=== PATIENT | female | born 1935 | race Caucasian/White ===

== ENCOUNTER 2018-05-05 11:19 | Inpatient (IN) | payer MEDICARE, MEDICAID ==
--- NOTE | 2018-05-05 12:17 | ER Document Report ---
ED Dizziness/Weakness - General Chief Complaint: General Weakness Stated Complaint: WEAKNESS Time Seen by Provider: 05/05/18 11:48 Information source: Patient Notes: 82-year-old female presents today with what appears to be her [id number] stating that the patient has been mumbling her words intermittently for around 1 week. Patient was diagnosed with some dementia around 1 year ago. Patient was scheduled to see the neurologist today but was having some difficulty walking. Patient was able to stand but was having some gait shuffling. Family states that this is happened around 3 times during this last week. It resolved spontaneously. Patient has had no witnessed falls, complaints of vomiting, diarrhea, or fever. TRAVEL OUTSIDE OF THE [place] IN LAST 30 DAYS: No - HPI Patient complains to provider of: Other - See above Onset: Other - See above Onset/Duration: Gradual Quality of pain: No pain Severity: Mild Pain Level: Denies Associated symptoms: Other - See above - Related Data Allergies/Adverse Reactions: Sulfa (Sulfonamide Antibiotics) Allergy (Verified 09/20/14 17:12) Past Medical History - General Information source: Relative - Social History Smoking Status: Unknown if Ever Smoked Cigarette use (# per day): No Chew tobacco use (# tins/day): No Smoking Education Provided: No Frequency of alcohol use: None Family History: Reviewed & Not Pertinent Patient has suicidal ideation: No Patient has homicidal ideation: No - Past Medical History Cardiac Medical History: Reports: Hx Hypertension Renal/ Medical History: Denies: Hx Peritoneal Dialysis Past Surgical History: Reports: Hx Appendectomy, Hx Bowel Surgery, Hx Hysterectomy, Hx Tonsillectomy - Immunizations Hx Diphtheria, Pertussis, Tetanus Vaccination: Yes Hx Pneumococcal Vaccination: 10/12/13 Review of Systems - Review of Systems Constitutional: denies: Fever EENT: denies: Eye discharge, Nose discharge Cardiovascular: denies: Chest pain, Palpitations Respiratory: denies: Short of breath Gastrointestinal: denies: Vomiting Genitourinary: denies: Dysuria Musculoskeletal: denies: Leg swelling Skin: Other - no hives. denies: Rash Neurological/Psychological: Other - no slurred speech -: Yes All other systems reviewed and negative Physical Exam - Vital signs Vitals: Temp Pulse Resp BP Pulse Ox 97.6 F 76 18 196/92 H 96 05/05/18 11:27 05/05/18 11:27 05/05/18 11:27 05/05/18 11:27 05/05/18 11:27 Notes: Reviewed vital signs and nursing note as charted by RN. CONSTITUTIONAL: Alert and polite. Patient does follow commands. She does mumble her words intermittently. No obvious facial drooping. Patient is not oriented to place or time which appears to be baseline according to the family HEAD: Normocephalic; atraumatic EYES: PERRL; CN 2-12 intact ENT: Normal nose; no rhinorrhea; moist mucous membranes; pharynx without lesions noted NECK: Supple without meningismus; non-tender; no cervical lymphadenopathy, no masses CARD: Regular rate and rhythm; no murmurs, no clicks, no rubs, no gallops; symmetric distal pulses RESP: Normal chest excursion without splinting or tachypnea; breath sounds clear and equal bilaterally ABD/GI: Normal bowel sounds; non-distended; soft, non-tender to deep palpation of all 4 quadrants of the abdomen. No abdominal bruits or palpable masses BACK: The back appears normal and is non-tender to palpation EXT: Normal ROM in all joints; non-tender to palpation, no edema SKIN: Normal color for age and race; warm; dry; no acute lesions noted NEURO: CN II through XII are intact. Patient appears to have 5 out of 5 bilateral upper and lower extremity strength with sensation intact to light touch PSYCH: The patient's mood and manner are appropriate. Grooming and personal hygiene are appropriate. Course - Re-evaluation Re-evalutation: 05/05/18 12:17 Given the history and physical examination, we will initially start with a CT scan of the head, labs, cardiac panel, EKG, catheterized urine analysis, and reassess. Given the intermittent episodes of some shuffling gait with no focal neurological deficits at this time, with some dementia, I am concerned initially about possibility of a Parkinson-like disorder. However, I believe the patient may require an MRI, carotid Dopplers, and an echo given the intermittent episodes of difficulty walking with some slurred speech. 05/05/18 12:36 EKG shows heart of 71, normal sinus rhythm, normal axis, LVH, inverted T waves in leads I, aVL, V4 through V6. Poor R-wave progression. Mild ST depressions in leads V4 through V6 Old EKG from 2013 shows LVH as well with sharp inverted T waves in leads V2 through V6 with ST depressions at that time in leads V2 through V4 05/05/18 14:58 Urine analysis as recorded. CT scan of the head shows no obvious acute infarct or bleed. Patient will be admitted to the hospitalist service for further evaluation. - Vital Signs Vital signs: Temp Pulse Resp BP Pulse Ox 97.6 F 76 18 196/92 H 94 05/05/18 11:27 05/05/18 11:27 05/05/18 14:00 05/05/18 11:27 05/05/18 14:00 - Laboratory Result Diagrams: 05/05/18 12:35 05/05/18 12:35 Laboratory results interpreted by me: 05/05/18 05/05/18 12:35 14:25 Total Bilirubin 1.4 H Total Protein 8.7 H Urine Ketones 20 H Urine Blood SMALL H Urine Urobilinogen 4.0 H Discharge - Discharge Clinical Impression: Slurred speech, Gait disorder Condition: Fair Disposition: ADMITTED OBSERVATION Admitting Provider: Hospitalist Unit Admitted: Telemetry Referrals: JUDAH CHAVEZ NP [COMMUNITY BASED STAFF] - Follow up as needed
[2018-05-05 13:02] LABS: ABSOLUTE BASOPHILS # (AUTO) 0.1 10^3/uL (0.0-0.2); ABSOLUTE EOSINOPHILS # (AUTO) 0.1 10^3/uL (0.0-0.6); ABSOLUTE LYMPHOCYTES (AUTO) 1.6 10^3/uL (0.5-4.7); ABSOLUTE MONOCYTES (AUTO) 0.4 10^3/uL (0.1-1.4); ABSOLUTE NEUT (AUTO) 7.1 10^3/uL (1.7-8.2); BASOPHILS % (AUTO) 0.9 % (0-2); EOSINOPHILS % (AUTO) 1.4 % (0-6); HEMATOCRIT 37.9 % (36.0-47.0); HEMOGLOBIN 12.9 g/dL (12.0-15.5); LYMPHOCYTES % (AUTO) 17.5 % (13-45); MEAN CORPUSCULAR HEMOGLOBIN 30.8 pg (27.0-33.4); MEAN CORPUSCULAR VOLUME 91 fl (80-97); MONOCYTES % (AUTO) 4.7 % (3-13); PLATELET COUNT 188 10^3/uL (150-450); RED BLOOD COUNT 4.18 10^6/uL (3.72-5.28); RED CELL DISTRIBUTION WIDTH 13.8 % (11.5-14.0); SEGMENTED NEUTROPHILS % (AUTO) 75.5 % (42-78); TOTAL CELLS COUNTED % (AUTO) 100 %; WHITE BLOOD COUNT 9.4 10^3/uL (4.0-10.5)
--- NOTE | 2018-05-05 13:07 | RADIOLOGY REPORT (SQ) ---
EXAM DESCRIPTION: CT HEAD WITHOUT COMPLETED DATE/TIME: 05/05/2018 12:56 pm REASON FOR STUDY: 19; ct head / weakness COMPARISON: None. TECHNIQUE: Axial images acquired through the brain without intravenous contrast. Images reviewed wi th bone, brain and subdural windows. Additional sagittal and coronal reconstructions were generated. Images stored on PACS. All CT scanners at this facility use dose modulation, iterative reconstruction, and/or weight based d osing when appropriate to reduce radiation dose to as low as reasonably achievable (ALARA). [facility]: Dose Right [facility]: CareDose [facility]: Dose Right [facility]: Teradose 4D [facility]: Yellloh RADIATION DOSE: CT Rad equipment meets quality standard of care and radiation dose reduction techniq ues were employed. CTDIvol: 53.2 mGy. DLP: 964 mGy-cm.mGy. LIMITATIONS: None. FINDINGS: VENTRICLES: Prominent. CEREBRUM: No masses. No hemorrhage. No midline shift. Areas of low density in the white matter mos t likely due to chronic micro-vascular ischemic change. No evidence for acute infarction. CEREBELLUM: No masses. No hemorrhage. No alteration of density. No evidence for acute infarction. EXTRAAXIAL SPACES: Age-related involutional change. No fluid collections. No masses. ORBITS AND GLOBE: No intra- or extraconal masses. Normal contour of globe without masses. CALVARIUM: No fracture. PARANASAL SINUSES: No fluid or mucosal thickening. SOFT TISSUES: No mass or hematoma. OTHER: No other significant finding. IMPRESSION: CHRONIC CHANGES OF ATROPHY AND MICROVASCULAR ISCHEMIA. NO ACUTE PROCESS. EVIDENCE OF ACUTE STROKE: NO. TECHNICAL DOCUMENTATION: JOB ID: [id number] Quality ID # [id number]: Final reports with documentation of one or more dose reduction techniques (e.g., Au tomated exposure control, adjustment of the mA and/or kV according to patient size, use of iterative reconstruction technique) 2010 [employer]- All Rights Reserved Reading location - IP/workstation name: [email or web address]
[2018-05-05 13:22] LABS: ALANINE AMINOTRANSFERASE 13 U/L (9-52); ALBUMIN 4.4 g/dL (3.5-5.0); ALKALINE PHOSPHATASE 94 U/L (38-126); ANION GAP 12 (5-19); ASPARTATE AMINO TRANSFERASE 21 U/L (14-36); BILIRUBIN,DIRECT 0.4 mg/dL (0.0-0.4); BILIRUBIN,TOTAL 1.4 mg/dL (0.2-1.3); BLOOD UREA NITROGEN 20 mg/dL (7-20); CALCIUM 9.4 mg/dL (8.4-10.2); CARBON DIOXIDE 27 mmol/L (22-30); CHLORIDE 101 mmol/L (98-107); GLUCOSE 90 mg/dL (75-110); POTASSIUM 3.7 mmol/L (3.6-5.0); SODIUM 140.1 mmol/L (137-145); TOTAL PROTEIN 8.7 g/dL (6.3-8.2)
[2018-05-05] MEDS ORDERED: ASPIRIN 325 MG TABLET PO ONE (14:38)
[2018-05-05 14:46] LABS: APPEARANCE,URINE SLIGHTLY-CLOUDY; BILIRUBIN,URINE NEGATIVE (NEGATIVE); COLOR,URINE YELLOW; GLUCOSE, URINE NEGATIVE (NEGATIVE); KETONES,URINE 20 mg/dL (NEGATIVE); LEUKOCYTE ESTERASE,URINE NEGATIVE (NEGATIVE); NITRITE,URINE NEGATIVE (NEGATIVE); PROTEIN,URINE NEGATIVE (NEGATIVE); URINE SPECIFIC GRAVITY 1.011
--- NOTE | 2018-05-05 15:09 | EKG REPORT ---
SEVERITY:- ABNORMAL ECG - SINUS RHYTHM REPOL ABNRM SUGGESTS ISCHEMIA, DIFFUSE LEADS PROBABLE LVH W/ SECONDARY REPOL ABNORMALITIES : Confirmed by: Renuka Mixon MD 05-May-2018 15:08:37
[2018-05-05] MEDS ORDERED: DEXTROSE 5%-NORMAL SALINE 1,000 ML IV PRN (16:05)
[2018-05-05] MEDS ORDERED: DEXTROSE 40% GEL 15 GM TUBE PO PRN ×2 (16:05)
[2018-05-05] MEDS ORDERED: GLUCAGON,HUMAN RECOMB 1 MG INJ SUBCUT PRN (16:05)
[2018-05-05] MEDS ORDERED: DEXTROSE 50%-WATER 25 GM/50 ML DISP.SYRIN IV PRN ×2 (16:05)
--- NOTE | 2018-05-05 16:22 | PDOC H&P ---
History of Present Illness Admission Date/PCP: 05/05/18 15:03 LATRICIA MASTERS NP History of Present Illness: LUIS MOORE is a 82 year old female brought by stepdaughter for mumbling and difficulty walking. Since patient has underlying cognitive impairment due to dementia she could not to give any history. Brief history is obtained from ER attending notes. Her [id number] states that the patient has been mumbling her overdose intermittently for around 1 week. Patient was diagnosed with some dementia around 1 year ago and she has been on Namenda. Patient was scheduled to see her neurologist today but was having some difficulty walking. Patient was able to stand but was having some gait abnormality. Family states that this is happened around 3 times during the last week. It resolved spontaneously patient has had no witnessed falls, complaints of vomiting, diarrhea or fevers. Further detailed history and review of systems unobtainable Past Medical History Cardiac Medical History: Reports: Hypertension Past Surgical History Past Surgical History: Reports: Appendectomy, Hysterectomy, Tonsillectomy Social History Smoking Status: Former Smoker Frequency of Alcohol Use: None Hx Recreational Drug Use: No Drugs: None Hx Prescription Drug Abuse: No - Advance Directive Resuscitation Status: Full Code Family History Family History: Reviewed & Not Pertinent Parental Family History Reviewed: Yes Children Family History Reviewed: Yes Sibling(s) Family History Reviewed.: Yes Medication/Allergy Allergies/Adverse Reactions: Sulfa (Sulfonamide Antibiotics) Allergy (Verified 09/20/14 17:12) Review of Systems ROS unobtainable: Due to mental status Physical Exam Vital Signs: Temp Pulse Resp BP Pulse Ox 97.6 F 76 22 H 136/94 H 96 05/05/18 11:27 05/05/18 11:27 05/05/18 15:03 05/05/18 15:03 05/05/18 15:03 General appearance: PRESENT: no acute distress Eye exam: PRESENT: conjunctiva pink Mouth exam: PRESENT: moist Neck exam: ABSENT: carotid bruit, JVD, lymphadenopathy, thyromegaly Respiratory exam: PRESENT: clear to auscultation raudel. ABSENT: rales, rhonchi, wheezes Cardiovascular exam: PRESENT: RRR. ABSENT: diastolic murmur, rubs, systolic murmur GI/Abdominal exam: PRESENT: normal bowel sounds, soft. ABSENT: distended, guarding, mass, organolmegaly, rebound, tenderness Extremities exam: PRESENT: full ROM. ABSENT: calf tenderness, clubbing, pedal edema Results Impressions: Head CT 05/05/18 12:10 IMPRESSION: CHRONIC CHANGES OF ATROPHY AND MICROVASCULAR ISCHEMIA. NO ACUTE PROCESS. EVIDENCE OF ACUTE STROKE: NO. Assessment & Plan - Diagnosis (1) Suspected stroke Is this a current diagnosis for this admission?: Yes Plan: Patient will have MRI of the brain. CT head is negative. (2) Hypertension Qualifiers: Hypertension type: essential hypertension Qualified Code(s): I10 - Essential (primary) hypertension Is this a current diagnosis for this admission?: Yes Plan: Continue home medications when she is cleared by speech therapist. (3) Dementia Qualifiers: Dementia type: unspecified type Is this a current diagnosis for this admission?: Yes Plan: Continue her Namenda
--- NOTE | 2018-05-05 19:44 | RADIOLOGY REPORT (SQ) ---
EXAM DESCRIPTION: MRI HEAD WITHOUT COMPLETED DATE/TIME: 05/05/2018 7:03 pm REASON FOR STUDY: Stroke G46.3 BRAIN STEM STROKE SYNDROME COMPARISON: 05/05/2018 TECHNIQUE: Multiplanar imaging includes non-contrasted T1, T2, FLAIR, and diffusion with ADC map seq uences. Images stored on PACS. LIMITATIONS: None. FINDINGS: ANATOMY: No anomalies. Normal vascular flow voids. Pituitary fossa normal. CSF SPACES: Atrophy induced prominence of ventricles and CSF spaces. CEREBRUM: High signal intensity lesions scattered throughout the white matter on FLAIR imaging with d istribution suggesting micro-vascular ischemic changes. High T2 signal also present in the periventr icular white matter of the right-sided pappas radiata just superior to the internal capsule that tasha elates with an area of restricted diffusion. No evidence of hemorrhage, mass, or extraaxial fluid co llection. POSTERIOR FOSSA: No signal alteration. No hemorrhage. No edema, masses or mass effect. Internal carmen tory canals, cerebello-pontine angles, mastoids normal. DIFFUSION IMAGING: There is restricted diffusion present in the right sided periventricular white mat ter just superior to the internal capsule in the pappas radiata. ORBITS: No masses. Globes normal. PARANASAL SINUSES: No fluid levels. Mucosa normal. OTHER: No other significant finding. IMPRESSION: 1. Acute to subacute infarction in the right-sided periventricular white matter of the pappas radiata just superior to the internal capsule. 2. Chronic parenchymal atrophy and microvascular ischemic changes. EVIDENCE OF ACUTE STROKE: YES. COMMENT: Pertinent findings on the imaging study reported as a CRITICAL RESULT to Dr. Muhammad At19:37 on 05/05/2018. Category of Critical Result: 1 TECHNICAL DOCUMENTATION: JOB ID: [id number] [employer]- All Rights Reserved Reading location - IP/workstation name: [email or web address]
[2018-05-05] MEDS: ATORVASTATIN CALCIUM 40 MG TABLET PO SCH (23:11)
[2018-05-06 00:24] LABS: CREATINE KINASE MB 2.6 ng/mL (<4.55); TROPONIN I 0.078 ng/mL
[2018-05-06] MEDS: METOPROLOL TARTRATE PF/INJ 5 MG/5 ML SDV IV PRN ×2 (00:56→07:41)
[2018-05-06] MEDS: ASPIRIN 81 MG TABLET, ENT COATED PO SCH ×2 (01:32→10:01)
[2018-05-06] MEDS: LANSOPRAZOLE 30 MG TAB.RAP.DR PO SCH (05:45)
[2018-05-06 05:49] LABS: HEMATOCRIT 36.8 % (36.0-47.0); HEMOGLOBIN 12.7 g/dL (12.0-15.5); MEAN CORPUSCULAR HEMOGLOBIN 30.9 pg (27.0-33.4); MEAN CORPUSCULAR HGB CONC 34.6 g/dL (32.0-36.0); MEAN CORPUSCULAR VOLUME 90 fl (80-97); PLATELET COUNT 177 10^3/uL (150-450); RED BLOOD COUNT 4.11 10^6/uL (3.72-5.28); RED CELL DISTRIBUTION WIDTH 13.4 % (11.5-14.0)
[2018-05-06 06:15] LABS: ANION GAP 11 (5-19); BLOOD UREA NITROGEN 16 mg/dL (7-20); CALCIUM 9.2 mg/dL (8.4-10.2); CARBON DIOXIDE 28 mmol/L (22-30); CHLORIDE 101 mmol/L (98-107); CREATINE KINASE 45 U/L (30-135); GLUCOSE 105 mg/dL (75-110); POTASSIUM 3.5 mmol/L (3.6-5.0); SODIUM 139.7 mmol/L (137-145)
[2018-05-06 06:24] LABS: CREATINE KINASE MB 2.45 ng/mL (<4.55); TROPONIN I 0.081 ng/mL
[2018-05-06] MEDS: ENOXAPARIN SODIUM INJ 30 MG/0.3 ML DISP.SYRIN SUBCUT SCH (10:01)
[2018-05-06] MEDS ORDERED: IPRATROPIUM/ALBUTEROL 0.5-2.5 MG/3 ML AMPUL NEB PRN (10:40)
[2018-05-06 12:34] LABS: CREATINE KINASE MB 2.24 ng/mL (<4.55); TROPONIN I 0.075 ng/mL
--- NOTE | 2018-05-06 14:10 | PDOC PROGRESS REPORT ---
Subjective Reason For Visit: STARTED SPEECH,DIFFICULTY WALKING Physical Exam Vital Signs: Temp Pulse Resp BP Pulse Ox 97.4 F 55 L 16 187/66 H 100 05/06/18 11:07 05/06/18 12:00 05/06/18 12:00 05/06/18 12:00 05/06/18 12:00 Intake & Output 05/05/18 05/06/18 05/07/18 06:59 06:59 06:59 Intake Total 177 1075 Output Total 1 Balance 176 1075 Weight 38.4 kg Results Laboratory Results: 05/06/18 05:40 05/06/18 05:40 05/06/18 05/06/18 05:40 05:40 WBC 7.0 RBC 4.11 Hgb 12.7 Hct 36.8 MCV 90 MCH 30.9 MCHC 34.6 RDW 13.4 Plt Count 177 Sodium 139.7 Potassium 3.5 L Chloride 101 Carbon Dioxide 28 Anion Gap 11 BUN 16 Creatinine 0.68 Est GFR ( Amer) > 60 Est GFR (Non-Af Amer) > 60 Glucose 105 Calcium 9.2 05/05/18 05/05/18 05/06/18 23:51 23:51 05:40 Creatine Kinase 49 45 CK-MB (CK-2) 2.60 Troponin I 0.078 05/06/18 05/06/18 05/06/18 05:40 11:39 11:39 Creatine Kinase 35 CK-MB (CK-2) 2.45 2.24 Troponin I 0.081 0.075 Impressions: Head MRI 05/05/18 00:00 IMPRESSION: 1. Acute to subacute infarction in the right-sided periventricular white matter of the pappas radiata just superior to the internal capsule. 2. Chronic parenchymal atrophy and microvascular ischemic changes. EVIDENCE OF ACUTE STROKE: YES. Head CT 05/05/18 12:10 IMPRESSION: CHRONIC CHANGES OF ATROPHY AND MICROVASCULAR ISCHEMIA. NO ACUTE PROCESS. EVIDENCE OF ACUTE STROKE: NO. Assessment & Plan - Diagnosis (1) Acute ischemic stroke Is this a current diagnosis for this admission?: Yes Plan: Patient has been started on aspirin high intensity Lipitor. (2) Hypertension Qualifiers: Hypertension type: essential hypertension Qualified Code(s): I10 - Essential (primary) hypertension Is this a current diagnosis for this admission?: Yes Plan: I will continue her home lisinopril and I will add metoprolol (3) Dementia Qualifiers: Dementia type: unspecified type Is this a current diagnosis for this admission?: Yes Plan: Continue her Namenda
--- NOTE | 2018-05-06 16:13 | RADIOLOGY REPORT (SQ) ---
EXAM DESCRIPTION: CAROTID DOPPLER COMPLETED DATE/TIME: 05/06/2018 4:04 pm REASON FOR STUDY: stroke G46.3 BRAIN STEM STROKE SYNDROME COMPARISON: None. TECHNIQUE: Grayscale ultrasound, Doppler velocity and spectra, and color Doppler images acquired of the extra-cranial carotid and vertebral arteries. Images stored on PACS. LIMITATIONS: None. FINDINGS: RIGHT CAROTID CCA Velocities: Within normal limits. ICA Velocities Peak systolic 1.04 m/s. End diastolic 0.26 m/s. Proximal ICA/CCA peak systolic ratio 1.31. Scattered plaque. LEFT CAROTID CCA Velocities: Within normal limits. ICA Velocities Peak systolic 0.63 m/s. End diastolic 0.18 m/s. Proximal ICA/CCA peak systolic ratio 1.24. Scattered plaque. VERTEBRAL ARTERIES: Antegrade flow. Normal waveforms. SUBCLAVIAN ARTERIES: No finding. OTHER: No other significant finding. IMPRESSION: NO HEMODYNAMICALLY SIGNIFICANT STENOSIS. COMMENT: Quality ID #[id number]: Velocity criteria are extrapolated from the diameter data as defined by t he Society of Radiologists in Ultrasound Consensus Conference. Radiology 2003: 229; 340-346. TECHNICAL DOCUMENTATION: JOB ID: [id number]- All Rights Reserved Reading location - IP/workstation name: [email or web address]
[2018-05-06 19:02] LABS: CREATINE KINASE MB 2.33 ng/mL (<4.55); TROPONIN I 0.077 ng/mL
[2018-05-06] MEDS: MEMANTINE HCL 10 MG TABLET PO SCH (21:33)
[2018-05-06] MEDS: ATORVASTATIN CALCIUM 40 MG TABLET PO SCH (21:34)
[2018-05-07] MEDS: METOPROLOL TARTRATE PF/INJ 5 MG/5 ML SDV IV PRN (00:02)
[2018-05-07 00:17] LABS: CREATINE KINASE MB 2.28 ng/mL (<4.55); TROPONIN I 0.079 ng/mL
[2018-05-07] MEDS: LANSOPRAZOLE 30 MG TAB.RAP.DR PO SCH (05:27)
[2018-05-07 06:47] LABS: CREATINE KINASE MB 2.16 ng/mL (<4.55); TROPONIN I 0.08 ng/mL
[2018-05-07] MEDS: ASPIRIN 81 MG TABLET, ENT COATED PO SCH (09:43)
[2018-05-07] MEDS: ENOXAPARIN SODIUM INJ 30 MG/0.3 ML DISP.SYRIN SUBCUT SCH (09:43)
[2018-05-07] MEDS: MEMANTINE HCL 10 MG TABLET PO SCH ×2 (09:43→22:34)
[2018-05-07] MEDS ORDERED: (PENDING PHARMACY ID) (Memantine Hcl [Namenda Xr] 14 MG) PO SCH (10:00)
--- NOTE | 2018-05-07 12:23 | PDOC PROGRESS REPORT ---
Subjective Progress Note for:: 05/07/18 Subjective:: No significant change overnight. Patient is cleared by speech therapist. Patient needs acute rehab placement to recuperate. Reason For Visit: ACUTE ISCHEMIC STROKE Physical Exam Vital Signs: Temp Pulse Resp BP Pulse Ox 97.2 F 67 18 189/97 H 100 05/07/18 07:27 05/07/18 08:00 05/07/18 08:00 05/07/18 08:00 05/07/18 08:00 Intake & Output 05/06/18 05/07/18 05/08/18 06:59 06:59 06:59 Intake Total 655 Balance 655 Weight 43.6 kg General appearance: PRESENT: no acute distress Head exam: PRESENT: atraumatic Eye exam: PRESENT: conjunctiva pink Mouth exam: PRESENT: moist Neck exam: ABSENT: carotid bruit, JVD, lymphadenopathy, thyromegaly Respiratory exam: PRESENT: clear to auscultation raudel. ABSENT: rales, rhonchi, wheezes Cardiovascular exam: PRESENT: RRR. ABSENT: diastolic murmur, rubs, systolic murmur Neurological exam: PRESENT: alert, awake Psychiatric exam: PRESENT: normal mood Results Laboratory Results: 05/06/18 05/06/18 05/06/18 18:06 18:06 23:47 Creatine Kinase 54 51 CK-MB (CK-2) 2.33 Troponin I 0.077 05/06/18 05/07/18 05/07/18 23:47 05:45 05:45 Creatine Kinase 47 CK-MB (CK-2) 2.28 2.16 Troponin I 0.079 0.080 Impressions: Head MRI 05/05/18 00:00 IMPRESSION: 1. Acute to subacute infarction in the right-sided periventricular white matter of the pappas radiata just superior to the internal capsule. 2. Chronic parenchymal atrophy and microvascular ischemic changes. EVIDENCE OF ACUTE STROKE: YES. Head CT 05/05/18 12:10 IMPRESSION: CHRONIC CHANGES OF ATROPHY AND MICROVASCULAR ISCHEMIA. NO ACUTE PROCESS. EVIDENCE OF ACUTE STROKE: NO. Carotid Doppler Study 05/06/18 00:00 IMPRESSION: NO HEMODYNAMICALLY SIGNIFICANT STENOSIS. Assessment & Plan - Diagnosis (1) Acute ischemic stroke Is this a current diagnosis for this admission?: Yes Plan: Patient has been started on aspirin high intensity Lipitor. (2) Hypertension Qualifiers: Hypertension type: essential hypertension Qualified Code(s): I10 - Essential (primary) hypertension Is this a current diagnosis for this admission?: Yes Plan: Uncontrolled. I will allow permissive hypertension because of recent acute versus subacute acute ischemic stroke. (3) Dementia Qualifiers: Dementia type: unspecified type Is this a current diagnosis for this admission?: Yes Plan: Continue her Namenda
[2018-05-07] MEDS: CHOLECALCIFEROL (D3) 1,000 UNIT TABLET PO SCH (12:52)
--- NOTE | 2018-05-07 17:58 | XCELERA REPORT ---
[address] [address] Transthoracic Echocardiogram Report Name: LUIS MOORE Age: 82 yrs Gender: Female : 1935 Patient Status: Inpatient Patient Location: [address] [place], [place] [address] Study Date: 05/07/2018 03:48 PM Procedure: A complete two-dimensional transthoracic echocardiogram was performed (2D, M-mode, spectral and color flow Doppler). The study was technically difficult with many images being suboptimal in quality. Reason For Study: ischemic CVA Ordering Physician: NITHIN ASHER Performed By: Kim Hogan Interpretation Summary Left ventricular systolic function is low normal. There is mild concentric left ventricular hypertrophy. The left ventricle is grossly normal size. Doppler measurements suggest pseudonormalized left ventricular relaxation, which is associated with grade II/IV or mild to moderate diastolic dysfunction Regional wall motion abnormalities cannot be excluded due to limited visualization. The right ventricular systolic function is normal. The right atrium is normal in size The left atrial size is normal. There is a trace amount of mitral regurgitation There is no mitral valve stenosis. No aortic regurgitation is present. There is no aortic valve stenosis No tricuspid regurgitation. There is no tricuspid stenosis. The aortic root is not well visualized. The inferior vena cava was not well visualized Minimal pericardial effusion. MMode/2D Measurements & Calculations IVSd: 0.81 cm LVIDd: 4.1 cm FS: 28.2 % LVIDs: 2.9 cm EDV(Teich): 73.2 ml LVPWd: 0.94 cm ESV(Teich): 32.9 ml EF(Teich): 55.0 % Doppler Measurements & Calculations MV E max farooq: MV dec slope: Ao V2 max: LV V1 max P.8 cm/sec 136.6 cm/sec2 108.6 cm/sec 3.0 mmHg MV A max farooq: MV dec time: Ao max PG: LV V1 max: 116.5 cm/sec 0.36 sec 4.8 mmHg 86.4 cm/sec MV E/A: 0.43 Ao V2 mean: 71.9 cm/sec Ao mean P.4 mmHg Ao V2 VTI: 18.6 cm PA V2 max: 92.0 cm/sec PA max P.4 mmHg Left Ventricle The left ventricle is grossly normal size. There is mild concentric left ventricular hypertrophy. Left ventricular systolic function is low normal. Doppler measurements suggest pseudonormalized left ventricular relaxation, which is associated with grade II/IV or mild to moderate diastolic dysfunction. Regional wall motion abnormalities cannot be excluded due to limited visualization. Right Ventricle The right ventricle is grossly normal size. There is normal right ventricular wall thickness. The right ventricular systolic function is normal. Atria The right atrium is normal in size. The left atrial size is normal. Interarterial septum not well visualized and not well dopplered. Cannot comment on ASD/PFO presence. Mitral Valve The mitral valve leaflets are sclerotic, but show no functional abnormalities. There is no mitral valve stenosis. There is a trace amount of mitral regurgitation. Aortic Valve The aortic valve opens well. There is no aortic valve stenosis. No aortic regurgitation is present. Tricuspid Valve The tricuspid valve is not well visualized, but is grossly normal. There is no tricuspid stenosis. No tricuspid regurgitation. Pulmonic Valve The pulmonic valve is not well visualized. Great Vessels The aortic root is not well visualized. The inferior vena cava was not well visualized. Effusions Minimal pericardial effusion. Incidental Findings Consider LACY if clinically indicated. May consider mobile cardiac telemetry monitoring (MCT) for ruling out transient AFIB. : NITHIN ASHER > Mar Tobar
[2018-05-07] MEDS: ATORVASTATIN CALCIUM 40 MG TABLET PO SCH (22:34)
[2018-05-08] MEDS: LANSOPRAZOLE 30 MG TAB.RAP.DR PO SCH (05:40)
[2018-05-08] MEDS: METOPROLOL TARTRATE PF/INJ 5 MG/5 ML SDV IV PRN (07:57)
[2018-05-08] MEDS: ASPIRIN 81 MG TABLET, ENT COATED PO SCH (10:01)
[2018-05-08] MEDS: METOPROLOL TARTRATE 25 MG TABLET PO SCH ×2 (10:01→21:22)
[2018-05-08] MEDS: MEMANTINE HCL 10 MG TABLET PO SCH ×2 (10:02→21:21)
[2018-05-08] MEDS: ENOXAPARIN SODIUM INJ 30 MG/0.3 ML DISP.SYRIN SUBCUT SCH (10:02)
[2018-05-08] MEDS: LISINOPRIL 10 MG TABLET PO SCH (10:02)
[2018-05-08] MEDS: CHOLECALCIFEROL (D3) 1,000 UNIT TABLET PO SCH (10:02)
--- NOTE | 2018-05-08 10:45 | PDOC PROGRESS REPORT ---
Subjective Progress Note for:: 05/08/18 Subjective:: I seen patient resting in bed and quietly sleeping. There is no significant event overnight Reason For Visit: ACUTE ISCHEMIC STROKE Physical Exam Vital Signs: Temp Pulse Resp BP Pulse Ox 97.4 F 62 16 180/47 H 100 05/08/18 07:22 05/08/18 08:13 05/08/18 08:13 05/08/18 09:31 05/08/18 08:13 Intake & Output 05/07/18 05/08/18 05/09/18 06:59 06:59 06:59 Intake Total 655 430 Balance 655 430 Weight 43.6 kg 43.2 kg General appearance: PRESENT: no acute distress Head exam: PRESENT: atraumatic Eye exam: PRESENT: conjunctiva pink Mouth exam: PRESENT: moist Neck exam: ABSENT: carotid bruit, JVD, lymphadenopathy, thyromegaly Respiratory exam: PRESENT: clear to auscultation raudel. ABSENT: rales, rhonchi, wheezes Cardiovascular exam: PRESENT: RRR. ABSENT: diastolic murmur, rubs, systolic murmur GI/Abdominal exam: PRESENT: normal bowel sounds, soft. ABSENT: distended, guarding, mass, organolmegaly, rebound, tenderness Results Laboratory Results: 05/06/18 05/06/18 05/06/18 18:06 18:06 23:47 Creatine Kinase 54 51 CK-MB (CK-2) 2.33 Troponin I 0.077 05/06/18 05/07/18 05/07/18 23:47 05:45 05:45 Creatine Kinase 47 CK-MB (CK-2) 2.28 2.16 Troponin I 0.079 0.080 Impressions: Head MRI 05/05/18 00:00 IMPRESSION: 1. Acute to subacute infarction in the right-sided periventricular white matter of the pappas radiata just superior to the internal capsule. 2. Chronic parenchymal atrophy and microvascular ischemic changes. EVIDENCE OF ACUTE STROKE: YES. Head CT 05/05/18 12:10 IMPRESSION: CHRONIC CHANGES OF ATROPHY AND MICROVASCULAR ISCHEMIA. NO ACUTE PROCESS. EVIDENCE OF ACUTE STROKE: NO. Carotid Doppler Study 05/06/18 00:00 IMPRESSION: NO HEMODYNAMICALLY SIGNIFICANT STENOSIS. Assessment & Plan - Diagnosis (1) Acute ischemic stroke Is this a current diagnosis for this admission?: Yes Plan: Patient qualifies for acute rehab (2) Hypertension Qualifiers: Hypertension type: essential hypertension Qualified Code(s): I10 - Essential (primary) hypertension Is this a current diagnosis for this admission?: Yes Plan: Uncontrolled. I will allow permissive hypertension because of recent acute versus subacute acute ischemic stroke. (3) Dementia Qualifiers: Dementia type: unspecified type Is this a current diagnosis for this admission?: Yes Plan: Continue her Namenda
[2018-05-08] MEDS: ATORVASTATIN CALCIUM 40 MG TABLET PO SCH (21:21)
[2018-05-09] MEDS: LANSOPRAZOLE 30 MG TAB.RAP.DR PO SCH (06:36)
[2018-05-09] MEDS: LISINOPRIL 10 MG TABLET PO SCH (09:20)
[2018-05-09] MEDS: METOPROLOL TARTRATE 25 MG TABLET PO SCH ×2 (09:20→22:03)
[2018-05-09] MEDS: MEMANTINE HCL 10 MG TABLET PO SCH ×2 (09:20→22:03)
[2018-05-09] MEDS: CHOLECALCIFEROL (D3) 1,000 UNIT TABLET PO SCH (09:21)
[2018-05-09] MEDS: ASPIRIN 81 MG TABLET, ENT COATED PO SCH (09:22)
[2018-05-09] MEDS: ENOXAPARIN SODIUM INJ 30 MG/0.3 ML DISP.SYRIN SUBCUT SCH (09:22)
--- NOTE | 2018-05-09 14:29 | PDOC PROGRESS REPORT ---
Subjective Progress Note for:: 05/09/18 Subjective:: I seen patient sitting up in bed and enjoying her breakfast. She is not in pain or distress. She is awake and alert. Vital signs stable. Reportedly patient has 2 episodes watery diarrhea and stool for Clostridium difficile requested. Reason For Visit: ACUTE ISCHEMIC STROKE Physical Exam Vital Signs: Temp Pulse Resp BP Pulse Ox 97.4 F 64 16 111/61 100 05/09/18 11:36 05/09/18 14:00 05/09/18 11:36 05/09/18 11:36 05/09/18 11:36 Intake & Output 05/08/18 05/09/18 05/10/18 06:59 06:59 06:59 Intake Total 430 692 120 Balance 430 692 120 Weight 43.2 kg 43 kg General appearance: PRESENT: no acute distress Head exam: PRESENT: atraumatic Mouth exam: PRESENT: moist Respiratory exam: PRESENT: clear to auscultation raudel. ABSENT: rales, rhonchi, wheezes Cardiovascular exam: PRESENT: RRR. ABSENT: diastolic murmur, rubs, systolic murmur Results Laboratory Results: 05/06/18 05/06/18 05/06/18 18:06 18:06 23:47 Creatine Kinase 54 51 CK-MB (CK-2) 2.33 Troponin I 0.077 05/06/18 05/07/18 05/07/18 23:47 05:45 05:45 Creatine Kinase 47 CK-MB (CK-2) 2.28 2.16 Troponin I 0.079 0.080 Impressions: Head MRI 05/05/18 00:00 IMPRESSION: 1. Acute to subacute infarction in the right-sided periventricular white matter of the pappas radiata just superior to the internal capsule. 2. Chronic parenchymal atrophy and microvascular ischemic changes. EVIDENCE OF ACUTE STROKE: YES. Head CT 05/05/18 12:10 IMPRESSION: CHRONIC CHANGES OF ATROPHY AND MICROVASCULAR ISCHEMIA. NO ACUTE PROCESS. EVIDENCE OF ACUTE STROKE: NO. Carotid Doppler Study 05/06/18 00:00 IMPRESSION: NO HEMODYNAMICALLY SIGNIFICANT STENOSIS. Assessment & Plan - Diagnosis (1) Acute ischemic stroke Is this a current diagnosis for this admission?: Yes Plan: Patient qualifies for acute inpatient rehab (2) Hypertension Qualifiers: Hypertension type: essential hypertension Qualified Code(s): I10 - Essential (primary) hypertension Is this a current diagnosis for this admission?: Yes Plan: Uncontrolled. I will allow permissive hypertension because of recent acute versus subacute acute ischemic stroke. (3) Dementia Qualifiers: Dementia type: unspecified type Is this a current diagnosis for this admission?: Yes Plan: Continue her Namenda
[2018-05-09] MEDS: ATORVASTATIN CALCIUM 40 MG TABLET PO SCH (22:03)
[2018-05-10] MEDS: LANSOPRAZOLE 30 MG TAB.RAP.DR PO SCH (05:49)
--- NOTE | 2018-05-10 08:07 | PDOC TRANSFER SUMMARY ---
General - Admit/Disc Date/PCP Admission Date/Primary Care Provider: 05/06/18 14:43 LATRICIA MASTERS NP Discharge Date: 05/10/18 - Discharge Diagnosis (1) Acute ischemic stroke Is this a current diagnosis for this admission?: Yes (2) Hypertension Is this a current diagnosis for this admission?: Yes (3) Dementia Is this a current diagnosis for this admission?: Yes - Additional Information Resuscitation Status: Full Code Home Medications: Albuterol Sulfate [Proair HFA Inhalation Aerosol 8.5 gm MDI] 2 puff IH Q6HP PRN 05/05/18 Memantine HCl [Namenda Xr] 14 mg PO DAILY 05/05/18 History of Present Illness Admission Date/PCP: 05/06/18 14:43 LATRICIA MASTERS NP History of Present Illness: LUIS MOORE is a 82 year old female brought by stepdaughter for mumbling and difficulty walking. Since patient has underlying cognitive impairment due to dementia she could not to give any history. Brief history is obtained from ER attending notes. Her [id number] states that the patient has been mumbling her overdose intermittently for around 1 week. Patient was diagnosed with some dementia around 1 year ago and she has been on Namenda. Patient was scheduled to see her neurologist today but was having some difficulty walking. Patient was able to stand but was having some gait abnormality. Family states that this is happened around 3 times during the last week. It resolved spontaneously patient has had no witnessed falls, complaints of vomiting, diarrhea or fevers. Further detailed history and review of systems unobtainable Hospital Course Hospital Course: This is 82 years old female patient brought from home with chief complaint of slurred speech and difficulty walking. Her MRI of the brain shows acute to subacute ischemic infarction on the right-sided periventricular white matter of the coronary data just superior to the internal capsule. Patient has been managed as a case of acute ischemic stroke aspirin, Plavix, high intensity Lipitor and physical therapy. Patient has been doing well. She eats well and tolerates well. She has uneventful hospital stay except for an episode of diarrhea and states that negative for Clostridium C. difficile colitis. I seen this patient this morning while she is resting in bed comfortably. She is not in pain or any form of distress. Her vital signs are stable. I will send patient with Lipitor 40 mg p.o. nightly, aspirin 81 mg and Lopressor 25 mg twice a day. I will continue the rest of her home medications. Physical Exam Vital Signs: Temp Pulse Resp BP Pulse Ox 97.6 F 61 16 173/80 H 97 05/10/18 04:16 05/10/18 05:56 05/10/18 04:16 05/10/18 05:56 05/10/18 04:16 Intake & Output 05/09/18 05/10/18 05/11/18 06:59 06:59 06:59 Intake Total 692 345 Balance 692 345 Weight 43 kg 38.5 kg General appearance: PRESENT: no acute distress Eye exam: PRESENT: conjunctiva pink Mouth exam: PRESENT: moist Neck exam: ABSENT: carotid bruit, JVD, lymphadenopathy, thyromegaly Respiratory exam: PRESENT: clear to auscultation raudel. ABSENT: rales, rhonchi, wheezes Cardiovascular exam: PRESENT: RRR. ABSENT: diastolic murmur, rubs, systolic murmur GI/Abdominal exam: PRESENT: normal bowel sounds, soft. ABSENT: distended, guarding, mass, organolmegaly, rebound, tenderness Extremities exam: PRESENT: full ROM. ABSENT: calf tenderness, clubbing, pedal edema Neurological exam: PRESENT: alert, awake Results Laboratory Results: 05/06/18 05/06/18 05/06/18 18:06 18:06 23:47 Creatine Kinase 54 51 CK-MB (CK-2) 2.33 Troponin I 0.077 05/06/18 05/07/18 05/07/18 23:47 05:45 05:45 Creatine Kinase 47 CK-MB (CK-2) 2.28 2.16 Troponin I 0.079 0.080 Impressions: Head MRI 05/05/18 00:00 IMPRESSION: 1. Acute to subacute infarction in the right-sided periventricular white matter of the pappas radiata just superior to the internal capsule. 2. Chronic parenchymal atrophy and microvascular ischemic changes. EVIDENCE OF ACUTE STROKE: YES. Head CT 05/05/18 12:10 IMPRESSION: CHRONIC CHANGES OF ATROPHY AND MICROVASCULAR ISCHEMIA. NO ACUTE PROCESS. EVIDENCE OF ACUTE STROKE: NO. Carotid Doppler Study 05/06/18 00:00 IMPRESSION: NO HEMODYNAMICALLY SIGNIFICANT STENOSIS. Qualifiers - * PATIENT BEING DISCHARGED WITH ANY OF THE FOLLOWING DIAGNOSIS: No
[2018-05-10] MEDS: CHOLECALCIFEROL (D3) 1,000 UNIT TABLET PO SCH (10:54)
[2018-05-10] MEDS: MEMANTINE HCL 10 MG TABLET PO SCH (10:54)
[2018-05-10] MEDS: ASPIRIN 81 MG TABLET, ENT COATED PO SCH (10:54)
[2018-05-10] MEDS: METOPROLOL TARTRATE 25 MG TABLET PO SCH (10:54)
[2018-05-10] MEDS: LISINOPRIL 10 MG TABLET PO SCH (10:54)
[2018-05-10] MEDS: ENOXAPARIN SODIUM INJ 30 MG/0.3 ML DISP.SYRIN SUBCUT SCH (11:03)
[2018-05-10 12:40] VITALS: BP 133/99
== END 2018-05-10 15:20 | DRG 66 ==
LOC: ER 11:19 → EH 15:03 → 3W 21:37 → OBSVTOIN 05-06 14:43 → 3W 05-09 20:16
PROVIDERS: ADMIT Internal Medicine; ATTEND Internal Medicine
DX: I63.9 Cerebral infarction, unspecified (principal); R47.81 Slurred speech; I10 Essential (primary) hypertension; R26.2 Difficulty in walking, not elsewhere classified; F03.90 Unspecified dementia, unspecified severity, without behavioral disturbance, psychotic disturbance, mood disturbance, and anxiety; Z90.49 Acquired absence of other specified parts of digestive tract; Z90.710 Acquired absence of both cervix and uterus; Z87.891 Personal history of nicotine dependence; Z88.2 Allergy status to sulfonamides
CPT/HCPCS: 36415; 70450; 70551; 80048; 80053; 81001; 82550; 82553; 82962; 84484; 85025; 85027; 87493; 93005; 93010; 93306; 93880; 99285; G0378; G8978-GP; G8979-GP; G8987-GO; G8988-GO; G8996-GN; G8997-GN; G8998-GN; J1650; J3490

== ENCOUNTER 2018-05-24 13:12 | Inpatient (IN) | payer MEDICARE, MEDICAID ==
--- NOTE | 2018-05-24 13:34 | ER Document Report ---
ED Neuro Symptoms/Deficit - General Mode of Arrival: Ambulatory Information source: Patient Notes: 82-year-old female that presents to the emergency department today with complaints of a fall that occurred prior to arrival. Patient is confused at baseline so history is limited. Patient has a large hematoma to the left temporal area. Patient also complains of pain with palpation and range of motion testing of left hip. TRAVEL OUTSIDE OF THE [place] IN LAST 30 DAYS: No <RUSTAM MARTINEZ - Last Filed: 05/24/18 13:42> - General Notes: This patient was admitted here on 05/05/2018 with an acute CVA. She was discharged to a snf on 05/10/2018. She does have a DNR paperwork with her from the snf. <BATSHEVA CUMMINGS - Last Filed: 05/24/18 17:11> - General Stated Complaint: FALL,HEAD INJURY Time Seen by Provider: 05/24/18 13:24 - Related Data Allergies/Adverse Reactions: Sulfa (Sulfonamide Antibiotics) Allergy (Verified 09/20/14 17:12) Past Medical History - General Information source: Patient - Social History Smoking Status: Unknown if Ever Smoked Cigarette use (# per day): No Frequency of alcohol use: None Drug Abuse: None Lives with: Family Family History: Reviewed & Not Pertinent - Past Medical History Cardiac Medical History: Reports: Hx Hypertension Renal/ Medical History: Denies: Hx Peritoneal Dialysis Psychiatric Medical History: Denies: Hx Depression Past Surgical History: Reports: Hx Appendectomy, Hx Bowel Surgery, Hx Hysterectomy, Hx Tonsillectomy - Immunizations Hx Diphtheria, Pertussis, Tetanus Vaccination: Yes Hx Pneumococcal Vaccination: 10/12/13 <RUSTAM MARTINEZ - Last Filed: 05/24/18 13:42> - Social History Lives with: Correction - Past Medical History Cardiac Medical History: Reports: Hx Hypercholesterolemia, Hx Hypertension Pulmonary Medical History: Reports: Other - The patient does use inhalers prn. Neurological Medical History: Reports: Hx Cerebrovascular Accident Psychiatric Medical History: Reports: Hx Dementia Past Surgical History: Reports: Hx Appendectomy, Hx Hysterectomy, Hx Tonsillectomy <BATSHEVA CUMMINGS - Last Filed: 05/24/18 17:11> Review of Systems - Review of Systems -: Yes ROS unobtainable due to patient's medical condition <RUSTAM MARTINEZ - Last Filed: 05/24/18 13:42> Physical Exam - Notes Notes: Physical Exam: General: Alert, confused at baseline. HEENT: Normocephalic. Large hematoma over the left temporal area, small lacerations over hematoma which explains the bleeding but none actively bleeding. PERRL. Extraocular movements intact. Oropharynx clear. Neck: Supple. Non-tender. Respiratory: No respiratory distress. Clear and equal breath sounds bilaterally. Cardiovascular: Occasionally irregular, regular rate. Abdominal: Normal Inspection. Non-tender. No distension. Normal Bowel Sounds. Back: Non-tender. No deformity or step off. Extremities: Moves all four extremities. Upper extremities: Normal inspection. Normal ROM. Lower extremities: Left hip tenderness with palpation. Neurological: Confused at baseline. Normal speech. Psychological: Unable to assess. Skin: Warm. Dry. Normal color. <RUSTAM MARTINEZ - Last Filed: 05/24/18 13:42> - Vital signs Vitals: Resp 20 05/24/18 13:29 <BATSHEVA CUMMINGS - Last Filed: 05/24/18 17:11> Course - Vital Signs Vital signs: Temp Pulse Resp BP Pulse Ox 20 162/98 H 97 05/24/18 13:34 05/24/18 13:34 05/24/18 13:34 - Laboratory Result Diagrams: 05/24/18 16:00 05/24/18 16:00 - Diagnostic Test Radiology reviewed: Image reviewed, Reports reviewed - CT of the head shows a large left frontoparietal hematoma, no acute intracranial event. CT scan of cervical spine shows chronic degenerative changes with nothing acute. X-ray of the left hip shows a displaced intertrochanteric fracture. - EKG Interpretation by [facility] EKG shows normal: Sinus rhythm, [place], Intervals, QRS Complexes, ST-T Waves Rate: Normal - 73 Rhythm: NSR, PVC's, APC's Voltage: Consistant with LVH When compared to previous EKG there are: No significant change - Consults Dr. Rockwell Time consulted: 14:45 Consulted provider: will see as inpatient Dr. Unique German Time consulted: 17:05 Consulted provider: will come to ER <BATSHEVA CUMMINGS - Last Filed: 05/24/18 17:11> ED [employer]/Exc Criteria ED NIH Stroke Scale Discharge <MICHELLERUSTAM - Last Filed: 05/24/18 13:42> - Discharge Admitting Provider: Hospitalist Unit Admitted: Telemetry Scribe Attestation: 05/24/18 14:31 I personally performed the services described in the documentation, reviewed and edited the documentation which was dictated to the scribe in my presence, and it accurately records my words and actions. <BATSHEVA CUMMINGS - Last Filed: 05/24/18 17:11> - Discharge Clinical Impression: Fall Qualifiers: Encounter type: initial encounter Qualified Code(s): W19.XXXA - Unspecified fall, initial encounter Hip fracture Qualifiers: Encounter type: initial encounter Fracture type: closed Laterality: left Qualified Code(s): S72.002A - Fracture of unspecified part of neck of left femur , initial encounter for closed fracture Scalp hematoma Qualifiers: Encounter type: initial encounter Qualified Code(s): S00.03XA - Contusion of scalp, initial encounter Dementia Qualifiers: Dementia type: unspecified type Dementia behavioral disturbance: without behavioral disturbance Qualified Code(s): F03.90 - Unspecified dementia without behavioral disturbance Urinary tract infection Qualifiers: Urinary tract infection type: site unspecified Hematuria presence: without hematuria Qualified Code(s): N39.0 - Urinary tract infection, site not specified Condition: Stable Disposition: ADMITTED INPATIENT Referrals: LATRICIA MASTERS, BONDING MACHINE OPERATOR [NURSE PRACTITIONER] - Follow up as needed
--- NOTE | 2018-05-24 14:40 | RADIOLOGY REPORT (SQ) ---
EXAM DESCRIPTION: CT HEAD WITHOUT COMPLETED DATE/TIME: 05/24/2018 2:25 pm REASON FOR STUDY: fell down and hit head with laceration COMPARISON: None. TECHNIQUE: Axial images acquired through the brain without intravenous contrast. Images reviewed wi th bone, brain and subdural windows. Additional sagittal and coronal reconstructions were generated. Images stored on PACS. All CT scanners at this facility use dose modulation, iterative reconstruction, and/or weight based d osing when appropriate to reduce radiation dose to as low as reasonably achievable (ALARA). [facility]: Dose Right [facility]: CareDose [facility]: Dose Right [facility]: Teradose 4D [facility]: RegBinder RADIATION DOSE: CT Rad equipment meets quality standard of care and radiation dose reduction techniq ues were employed. CTDIvol: 53.2 mGy. DLP: 1742 mGy-cm.mGy. LIMITATIONS: Motion. FINDINGS: VENTRICLES: Prominent. CEREBRUM: No masses. No hemorrhage. No midline shift. Areas of low density in the white matter mos t likely due to chronic micro-vascular ischemic change. No evidence for acute infarction. CEREBELLUM: No masses. No hemorrhage. No alteration of density. No evidence for acute infarction. EXTRAAXIAL SPACES: Age-related involutional change. No fluid collections. No masses. ORBITS AND GLOBE: No intra- or extraconal masses. Normal contour of globe without masses. CALVARIUM: No fracture. PARANASAL SINUSES: No fluid or mucosal thickening. SOFT TISSUES: Left frontal scalp hematoma. OTHER: No other significant finding. IMPRESSION: CHRONIC CHANGES OF ATROPHY AND MICROVASCULAR ISCHEMIA. NO ACUTE PROCESS. EVIDENCE OF ACUTE STROKE: NO. TECHNICAL DOCUMENTATION: JOB ID: [id number] Quality ID # [id number]: Final reports with documentation of one or more dose reduction techniques (e.g., Au tomated exposure control, adjustment of the mA and/or kV according to patient size, use of iterative reconstruction technique) 2010 [employer]- All Rights Reserved Reading location - IP/workstation name: [email or web address]
--- NOTE | 2018-05-24 14:41 | RADIOLOGY REPORT (SQ) ---
EXAM DESCRIPTION: CT CERVICAL SPINE WITHOUT COMPLETED DATE/TIME: 05/24/2018 2:25 pm REASON FOR STUDY: Fall, hit head, left hip and femur pain COMPARISON: None. TECHNIQUE: Axial images acquired through the cervical spine without intravenous contrast. Images re viewed with lung, soft tissue and bone windows. Reconstructed coronal and sagittal MPR images review ed. Images stored on PACS. All CT scanners at this facility use dose modulation, iterative reconstruction, and/or weight based d osing when appropriate to reduce radiation dose to as low as reasonably achievable (ALARA). [facility]: Dose Right [facility]: CareDose [facility]: Dose Right [facility]: Teradose 4D [facility]: Whois RADIATION DOSE: CT Rad equipment meets quality standard of care and radiation dose reduction techniq ues were employed. CTDIvol: 5.9 mGy. DLP: 119 mGy-cm. mGy. LIMITATIONS: Motion. FINDINGS: ALIGNMENT: Anatomic. MINERALIZATION: Normal. VERTEBRAL BODIES: No fractures or dislocation. DISCS: Multilevel disc space narrowing with osteophytes. FACETS, LATERAL MASSES, POSTERIOR ELEMENTS: Anatomic variant incomplete posterior arch of C1. HARDWARE: None in the spine. VISUALIZED RIBS: No fractures. LUNG APICES AND SOFT TISSUES: No significant or acute findings. OTHER: No other significant finding. IMPRESSION: CHRONIC DEGENERATIVE CHANGES. NO ACUTE FINDINGS. TECHNICAL DOCUMENTATION: JOB ID: [id number] Quality ID # [id number]: Final reports with documentation of one or more dose reduction techniques (e.g., Au tomated exposure control, adjustment of the mA and/or kV according to patient size, use of iterative reconstruction technique) 2010 [employer]- All Rights Reserved Reading location - IP/workstation name: [email or web address]
--- NOTE | 2018-05-24 14:50 | RADIOLOGY REPORT (SQ) ---
EXAM DESCRIPTION: PELVIS AP COMPLETED DATE/TIME: 05/24/2018 2:28 pm REASON FOR STUDY: Fall, hit head, left hip and femur pain COMPARISON: None. NUMBER OF VIEWS: One view TECHNIQUE: AP Pelvis LIMITATIONS: None. FINDINGS: MINERALIZATION: Osteopenia. HIPS: Displaced fracture at the base of the left femoral neck. There appears be some mild rotation of the left femoral head medially and displacement of the femur superiorly. PELVIS AND SACRUM: Multiple surgical sutures and clips left lower quadrant of the abdomen and upper pelvic region. No acute fracture or dislocation. PUBIS AND ISCHIUM: No acute fracture. LOWER LUMBAR SPINE: Degenerative changes lower lumbar spine. SOFT TISSUES: Soft tissue vascular calcifications bilaterally. OTHER: No other significant finding. IMPRESSION: 1 Displaced fracture at the base of the left femoral neck. COMMENT: 1 The results of this examination were discussed with the emergency department provider on 05/24/2018 at 14:40 hours. TECHNICAL DOCUMENTATION: JOB ID: [id number] [employer]- All Rights Reserved Reading location - IP/workstation name: [email or web address]
--- NOTE | 2018-05-24 14:50 | RADIOLOGY REPORT (SQ) ---
EXAM DESCRIPTION: FEMUR LEFT COMPLETED DATE/TIME: 05/24/2018 2:28 pm REASON FOR STUDY: Fall, hit head, left hip and femur pain COMPARISON: None. NUMBER OF VIEWS: Two views. TECHNIQUE: Two radiographic images acquired of the left femur to include hip and knee in at least on e projection. LIMITATIONS: None. FINDINGS: MINERALIZATION: Osteopenia. BONES: Subcapital fracture left femoral neck with impaction. SOFT TISSUES: No obvious swelling or foreign body. OTHER: No other significant finding. IMPRESSION: Fracture left femoral neck. TECHNICAL DOCUMENTATION: JOB ID: [id number] [employer]- All Rights Reserved Reading location - IP/workstation name: [email or web address]
[2018-05-24 15:25] LABS: APPEARANCE,URINE CLOUDY; BILIRUBIN,URINE NEGATIVE (NEGATIVE); COLOR,URINE AMBER; GLUCOSE, URINE NEGATIVE (NEGATIVE); KETONES,URINE TRACE mg/dL (NEGATIVE); LEUKOCYTE ESTERASE,URINE TRACE (NEGATIVE); NITRITE,URINE NEGATIVE (NEGATIVE); PROTEIN,URINE NEGATIVE (NEGATIVE); URINE SPECIFIC GRAVITY 1.018
[2018-05-24] MEDS ORDERED: CEFTRIAXONE 1 GM/D5W RTU 50 ML IV ONE (15:40)
[2018-05-24] MEDS ORDERED: MORPHINE SULFATE 10 MG/ML INJ IV ONE (16:05)
[2018-05-24] MEDS ORDERED: ONDANSETRON HCL INJ/PF 4 MG/2 ML SDV IV ONE (16:05)
[2018-05-24 16:20] LABS: ABSOLUTE LYMPHOCYTES (AUTO) 1.3 10^3/uL (0.5-4.7); ABSOLUTE MONOCYTES (AUTO) 0.6 10^3/uL (0.1-1.4); ABSOLUTE NEUT (AUTO) 10.8 10^3/uL (1.7-8.2); BASOPHILS % (AUTO) 0.3 % (0-2); EOSINOPHILS % (AUTO) 0.3 % (0-6); HEMATOCRIT 37.6 % (36.0-47.0); HEMOGLOBIN 12.6 g/dL (12.0-15.5); LYMPHOCYTES % (AUTO) 10.3 % (13-45); MEAN CORPUSCULAR HEMOGLOBIN 30.3 pg (27.0-33.4); MEAN CORPUSCULAR HGB CONC 33.6 g/dL (32.0-36.0); MEAN CORPUSCULAR VOLUME 90 fl (80-97); MONOCYTES % (AUTO) 4.7 % (3-13); PLATELET COUNT 275 10^3/uL (150-450); RED BLOOD COUNT 4.17 10^6/uL (3.72-5.28); SEGMENTED NEUTROPHILS % (AUTO) 84.4 % (42-78); TOTAL CELLS COUNTED % (AUTO) 100 %; WHITE BLOOD COUNT 12.8 10^3/uL (4.0-10.5)
[2018-05-24 16:26] LABS: INTERNATIONAL RATION (INR) 0.97; PROTHROMBIN TIME 13.4 SEC (11.4-15.4)
[2018-05-24 16:43] LABS: ALANINE AMINOTRANSFERASE 24 U/L (9-52); ALKALINE PHOSPHATASE 95 U/L (38-126); ANION GAP 14 (5-19); ASPARTATE AMINO TRANSFERASE 26 U/L (14-36); BILIRUBIN,DIRECT 0.2 mg/dL (0.0-0.4); BLOOD UREA NITROGEN 17 mg/dL (7-20); CARBON DIOXIDE 23 mmol/L (22-30); CHLORIDE 99 mmol/L (98-107); CREATINE KINASE 156 U/L (30-135); GLUCOSE 114 mg/dL (75-110); SODIUM 136.4 mmol/L (137-145); TOTAL PROTEIN 7.9 g/dL (6.3-8.2)
[2018-05-24 16:53] LABS: CREATINE KINASE MB 4.58 ng/mL (<4.55)
[2018-05-24 16:57] LABS: TROPONIN I 0.055 ng/mL
[2018-05-24] MEDS ORDERED: CEFTRIAXONE INJ 1000 MG VIAL IV ONE (17:30)
--- NOTE | 2018-05-24 18:14 | PDOC CONSULTATION ---
History of Present Illness Admission Date/PCP: 05/24/18 17:43 CONNIE BURLESON MD History of Present Illness: LUIS MOORE is a 82 year old female who presents to emergency room after sustaining unwitnessed fall apparently onto her left side. [facility] Patient is confused at baseline and thus limited history of present illness. Past Medical History Cardiac Medical History: Reports: Hyperlipidema, Hypertension Pulmonary Medical History: Reports: Other - The patient does use inhalers prn. Psychiatric Medical History: Reports: Dementia Denies: Depression Past Surgical History Past Surgical History: Reports: Appendectomy, Hysterectomy, Tonsillectomy Social History Lives with: Assisted Smoking Status: Unknown if Ever Smoked Frequency of Alcohol Use: None Hx Recreational Drug Use: No Drugs: None Hx Prescription Drug Abuse: No Family History Family History: Reviewed & Not Pertinent Parental Family History Reviewed: No Children Family History Reviewed: No Sibling(s) Family History Reviewed.: No Medication/Allergy Home Medications: Albuterol Sulfate [Proair HFA Inhalation Aerosol 8.5 gm MDI] 2 puff IH Q6HP PRN 05/05/18 Memantine HCl [Namenda Xr] 14 mg PO DAILY 05/05/18 Aspirin [Ecotrin 81 mg EC Tablet] 81 mg PO DAILY #30 tabec 05/10/18 Atorvastatin Calcium [Lipitor 40 mg Tablet] 40 mg PO QHS #30 tablet 05/10/18 Cholecalciferol (Vitamin D3) [Vitamin D3 1000 Unit Tablet] 2,000 unit PO DAILY # 30 tablet 05/10/18 Metoprolol Tartrate [Lopressor 25 mg Tablet] 25 mg PO Q12 #60 tablet 05/10/18 Allergies/Adverse Reactions: Sulfa (Sulfonamide Antibiotics) Allergy (Verified 09/20/14 17:12) Review of Systems ROS unobtainable: Due to mental status Constitutional: ABSENT: chills, fever(s), headache(s), weight gain, weight loss Eyes: ABSENT: visual disturbances Ears: ABSENT: hearing changes Cardiovascular: ABSENT: chest pain, dyspnea on exertion, edema, orthropnea, palpitations Respiratory: ABSENT: cough, hemoptysis Gastrointestinal: ABSENT: abdominal pain, constipation, diarrhea, hematemesis, hematochezia, nausea, vomiting Genitourinary: ABSENT: dysuria, hematuria Integumentary: ABSENT: rash, wounds Neurological: ABSENT: abnormal gait, abnormal speech, confusion, dizziness, focal weakness, syncope Psychiatric: ABSENT: anxiety, depression, homidical ideation, suicidal ideation Endocrine: ABSENT: cold intolerance, heat intolerance, menstrual abnormalities, polydipsia, polyuria Hematologic/Lymphatic: ABSENT: easy bleeding, easy bruising, lymphadenopathy Physical Exam Vital Signs: Temp Pulse Resp BP Pulse Ox 97.7 F 16 140/83 H 96 05/24/18 13:45 05/24/18 17:00 05/24/18 16:00 05/24/18 17:00 General appearance: PRESENT: no acute distress, thin Head exam: PRESENT: other - Significant ecchymosis with swelling along the left frontal/temporal area Eye exam: PRESENT: other - Conjunctival injection. ABSENT: scleral icterus Ear exam: PRESENT: normal external ear exam Mouth exam: PRESENT: dry mucosa, tongue midline Teeth exam: PRESENT: poor dentation Neck exam: PRESENT: full ROM. ABSENT: carotid bruit, JVD, lymphadenopathy, thyromegaly Respiratory exam: PRESENT: unlabored Cardiovascular exam: PRESENT: RRR. ABSENT: diastolic murmur, rubs, systolic murmur Pulses: PRESENT: +1 pedal pulses bilateral GI/Abdominal exam: PRESENT: normal bowel sounds, soft. ABSENT: distended, guarding, mass, organolmegaly, rebound, tenderness Rectal exam: PRESENT: deferred Musculoskeletal exam: PRESENT: other - Left hip: Shortened externally rotated with positive logroll. Spontaneous plantar flexion/dorsiflexion. No evidence of open wound. Mild thigh swelling. Neurological exam: PRESENT: abnormal gait, other - Disoriented. ABSENT: motor sensory deficit Psychiatric exam: PRESENT: appropriate affect, flat affect, normal mood. ABSENT : homicidal ideation, suicidal ideation Skin exam: PRESENT: dry, intact, warm. ABSENT: cyanosis, rash Results Impressions: Head CT 05/24/18 00:00 IMPRESSION: CHRONIC CHANGES OF ATROPHY AND MICROVASCULAR ISCHEMIA. NO ACUTE PROCESS. EVIDENCE OF ACUTE STROKE: NO. Cervical Spine CT 05/24/18 13:32 IMPRESSION: CHRONIC DEGENERATIVE CHANGES. NO ACUTE FINDINGS. Femur X-Ray 05/24/18 13:32 IMPRESSION: Fracture left femoral neck. Pelvis X-Ray 05/24/18 13:32 IMPRESSION: 1 Displaced fracture at the base of the left femoral neck. Status: Image reviewed by me - I have reviewed patient's radiographs which demonstrate displaced left femoral neck fracture Assessment & Plan - Diagnosis (1) Left displaced femoral neck fracture Is this a current diagnosis for this admission?: Yes Plan: I have reviewed patient's radiographs demonstrating displaced left femoral neck fracture. Typically this is treated operatively with a left hip hemiarthroplasty however given patient's most recent stroke and baseline dementia she is likely not a good surgical candidate but pending medical optimization and risk stratification will determine appropriate treatment I have attempted to contact patient's son Mati Moore at [phone] but have been unable to contact him. Once I am able to contact the family will make definitive decision on adequate treatment.
[2018-05-24] MEDS ORDERED: DEXTROSE 50%-WATER 25 GM/50 ML DISP.SYRIN IV PRN ×2 (21:12)
[2018-05-24] MEDS ORDERED: GLUCAGON,HUMAN RECOMB 1 MG INJ SUBCUT PRN (21:12)
[2018-05-24] MEDS ORDERED: DEXTROSE 5%-1/2 NORMAL SALINE 1,000 ML IV PRN (21:12)
[2018-05-24] MEDS ORDERED: DEXTROSE 40% GEL 15 GM TUBE PO PRN ×2 (21:12)
--- NOTE | 2018-05-24 21:37 | PDOC H&P ---
History of Present Illness Admission Date/PCP: 05/24/18 17:43 CONNIE BURLESON MD Patient complains of: Fall History of Present Illness: LUIS MOORE is a 82 year old female admitted to the emergency room with a fall. Patient is a resident of [facility] and is a wanderer and was found on the floor bleeding from the left side of her head with minimal blood loss. Patient has a history of Plavix and last known dose administration time is unknown. However per report facility denied any blood thinners. Per report patient ambulated to the stretcher she denied any pain was tender to palpation on the left side of her head. Of note patient has allergies to sulfa. And is a DO NOT RESUSCITATE. Patient has a history of recent acute ischemic stroke. Patient also has a history of hypertension anxiety generalized weakness and dementia. Patient according to med list from [facility] patient is on Lipitor 40 vitamin D3 Lopressor, Namenda, aspirin, Roxanol, Ativan, inhaler flow air. Of note patient was noted to have difficulty swallowing when she was discharged to the facility. In the node accompanied in patient's chart it is mentioned that because patient was found not safe for nutrition by mouth her medications by mouth alternative treatments and PEG tube were discussed with the son. Son who is from [facility] is visiting and is gone the next morning indicates that his mom had not wanted any heroic measures or life support. And CODE STATUS was changed from a full code to DO NOT RESUSCITATE. Patient was seen by the orthopedic in the emergency room . Past Medical History Cardiac Medical History: Reports: Hyperlipidema, Hypertension Pulmonary Medical History: Reports: Other - The patient does use inhalers prn. Musculoskeltal Medical History: Reports: Arthritis Psychiatric Medical History: Reports: Dementia Denies: Depression Past Surgical History Past Surgical History: Reports: Appendectomy, Hysterectomy, Tonsillectomy Social History Lives with: Custodial Smoking Status: Unknown if Ever Smoked Frequency of Alcohol Use: None Hx Recreational Drug Use: No Drugs: None Hx Prescription Drug Abuse: No Family History Family History: Reviewed & Not Pertinent Parental Family History Reviewed: Yes Children Family History Reviewed: NA Sibling(s) Family History Reviewed.: NA Medication/Allergy Home Medications: Lorazepam [Lorazepam Intensol] 1 mg PO Q1HP PRN 05/24/18 Morphine Sulfate [Roxanol] 5 mg PO Q1HP PRN 05/24/18 Allergies/Adverse Reactions: Sulfa (Sulfonamide Antibiotics) Allergy (Verified 05/24/18 18:34) Physical Exam Vital Signs: Temp Pulse Resp BP Pulse Ox 97.7 F 15 155/72 H 96 05/24/18 13:45 05/24/18 21:01 05/24/18 21:01 05/24/18 21:01 Results Impressions: Head CT 05/24/18 00:00 IMPRESSION: CHRONIC CHANGES OF ATROPHY AND MICROVASCULAR ISCHEMIA. NO ACUTE PROCESS. EVIDENCE OF ACUTE STROKE: NO. Cervical Spine CT 05/24/18 13:32 IMPRESSION: CHRONIC DEGENERATIVE CHANGES. NO ACUTE FINDINGS. Femur X-Ray 05/24/18 13:32 IMPRESSION: Fracture left femoral neck. Pelvis X-Ray 05/24/18 13:32 IMPRESSION: 1 Displaced fracture at the base of the left femoral neck. Assessment & Plan - Diagnosis (1) Left displaced femoral neck fracture Is this a current diagnosis for this admission?: Yes Plan: Her orthopedic Dr. pascal has seen the patient. (2) Hypertension Qualifiers: Hypertension type: essential hypertension Qualified Code(s): I10 - Essential (primary) hypertension (3) Acute ischemic stroke Is this a current diagnosis for this admission?: No Plan: Aspirin and Plavix held to scalp hematoma. Anticoagulation in this frail elderly patient is very risky due to patient's risk of bleed and fall / [employer] hemorrhage. (4) Scalp hematoma Qualifiers: Encounter type: initial encounter Qualified Code(s): S00.03XA - Contusion of scalp, initial encounter Is this a current diagnosis for this admission?: Yes Plan: Wound has been dressed in the emergency room. (5) Dysphagia as late effect of cerebrovascular accident (CVA) Is this a current diagnosis for this admission?: No Plan: Previous admission patient had an acute ischemic CVA suspect her swallowing issue as a remnant of this. Patient has been evaluated was found to be not safe for any p.o. intake. - Time Critical Time spent with patient: 15-24 minutes - Inpatient Certification Based on my medical assessment, after consideration of the patient's comorbidities, presenting symptoms, or acuity I expect that the services needed warrant INPATIENT care.: Yes I certify that my determination is in accordance with my understanding of Medicare's requirements for reasonable and necessary INPATIENT services [42 CFR 412.3e].: Yes Medical Necessity: Risk of Complication if Not Cared For in Hospital
[2018-05-24 22:12] LABS: CREATINE KINASE MB 3.23 ng/mL (<4.55); TROPONIN I 0.064 ng/mL
[2018-05-25] MEDS: HYDROCHLOROTHIAZIDE 12.5 MG TABLET PO SCH ×2 (01:17→12:25)
[2018-05-25] MEDS: PANTOPRAZOLE SODIUM 40 MG VIAL IV SCH ×2 (01:17→22:51)
[2018-05-25 04:51] LABS: ABSOLUTE LYMPHOCYTES (AUTO) 1.5 10^3/uL (0.5-4.7); ABSOLUTE MONOCYTES (AUTO) 0.8 10^3/uL (0.1-1.4); ABSOLUTE NEUT (AUTO) 10.7 10^3/uL (1.7-8.2); BASOPHILS % (AUTO) 0.4 % (0-2); EOSINOPHILS % (AUTO) 0.2 % (0-6); HEMATOCRIT 34.1 % (36.0-47.0); HEMOGLOBIN 11.6 g/dL (12.0-15.5); LYMPHOCYTES % (AUTO) 11.3 % (13-45); MEAN CORPUSCULAR HEMOGLOBIN 30.4 pg (27.0-33.4); MEAN CORPUSCULAR HGB CONC 34.1 g/dL (32.0-36.0); MEAN CORPUSCULAR VOLUME 89 fl (80-97); MONOCYTES % (AUTO) 6.4 % (3-13); PLATELET COUNT 246 10^3/uL (150-450); RED BLOOD COUNT 3.83 10^6/uL (3.72-5.28); RED CELL DISTRIBUTION WIDTH 13.6 % (11.5-14.0); SEGMENTED NEUTROPHILS % (AUTO) 81.7 % (42-78); TOTAL CELLS COUNTED % (AUTO) 100 %; WHITE BLOOD COUNT 13.1 10^3/uL (4.0-10.5)
[2018-05-25 05:22] LABS: ALANINE AMINOTRANSFERASE 27 U/L (9-52); ALBUMIN 3.6 g/dL (3.5-5.0); ALKALINE PHOSPHATASE 82 U/L (38-126); ANION GAP 14 (5-19); ASPARTATE AMINO TRANSFERASE 22 U/L (14-36); BILIRUBIN,DIRECT 0.2 mg/dL (0.0-0.4); BILIRUBIN,TOTAL 1.1 mg/dL (0.2-1.3); BLOOD UREA NITROGEN 18 mg/dL (7-20); CALCIUM 9.5 mg/dL (8.4-10.2); CARBON DIOXIDE 22 mmol/L (22-30); CHLORIDE 101 mmol/L (98-107); GLUCOSE 135 mg/dL (75-110); PHOSPHORUS 3.7 mg/dL (2.5-4.5); POTASSIUM 4.8 mmol/L (3.6-5.0); SODIUM 136.6 mmol/L (137-145); TOTAL PROTEIN 7.2 g/dL (6.3-8.2)
[2018-05-25 05:34] LABS: CREATINE KINASE MB 2.44 ng/mL (<4.55); TROPONIN I 0.072 ng/mL
[2018-05-25 06:58] LABS: FREE T4 (FREE THYROXINE) 1.47 ng/dL (0.78-2.19)
[2018-05-25 07:12] LABS: THYROID STIMULATING HORMONE 7.15 uIU/mL (0.47-4.68)
[2018-05-25 10:39] LABS: CREATINE KINASE MB 2.05 ng/mL (<4.55); TROPONIN I 0.063 ng/mL
--- NOTE | 2018-05-25 12:36 | PDOC PROGRESS REPORT ---
Subjective Progress Note for:: 05/25/18 Subjective:: Patient currently lying in bed comfortably. Friend at bedside. Currently complains of no pain. Reason For Visit: FALL,LEFT DISPLACED FEMORAL NECK FRACTURE,DEMENTIA Physical Exam Vital Signs: Temp Pulse Resp BP Pulse Ox 98.5 F 82 20 155/88 H 95 05/25/18 07:36 05/25/18 07:36 05/25/18 07:36 05/25/18 07:36 05/25/18 07:36 Intake & Output 05/24/18 05/25/18 05/26/18 06:59 06:59 06:59 Intake Total 975 Output Total 250 Balance -250 975 Weight 38.1 kg General appearance: PRESENT: no acute distress, disheveled, thin Musculoskeletal exam: PRESENT: other - Left lower extremity: Spontaneous plantarflexion however weakness noted. Positive logroll. Extremity short and externally rotated. Pain with attempted motion Results Laboratory Results: 05/25/18 03:46 05/25/18 03:46 05/25/18 05/25/18 05/25/18 03:46 03:46 03:46 WBC 13.1 H RBC 3.83 Hgb 11.6 L Hct 34.1 L MCV 89 MCH 30.4 MCHC 34.1 RDW 13.6 Plt Count 246 Seg Neutrophils % 81.7 H Lymphocytes % 11.3 L Monocytes % 6.4 Eosinophils % 0.2 Basophils % 0.4 Absolute Neutrophils 10.7 H Absolute Lymphocytes 1.5 Absolute Monocytes 0.8 Absolute Eosinophils 0.0 Absolute Basophils 0.0 Sodium 136.6 L Potassium 4.8 Chloride 101 Carbon Dioxide 22 Anion Gap 14 BUN 18 Creatinine 0.66 Est GFR ( Amer) > 60 Est GFR (Non-Af Amer) > 60 Glucose 135 H Calcium 9.5 Phosphorus 3.7 Magnesium 1.7 Total Bilirubin 1.1 AST 22 ALT 27 Alkaline Phosphatase 82 Total Protein 7.2 Albumin 3.6 TSH 7.15 H Free T4 1.47 05/24/18 05/24/18 05/25/18 21:30 21:30 03:46 Creatine Kinase 97 100 CK-MB (CK-2) 3.23 Troponin I 0.064 NT-Pro-B Natriuret Pep 05/25/18 05/25/18 05/25/18 03:46 03:46 09:25 Creatine Kinase 86 CK-MB (CK-2) 2.44 Troponin I 0.072 NT-Pro-B Natriuret Pep 3110 H 05/25/18 09:25 Creatine Kinase CK-MB (CK-2) 2.05 Troponin I 0.063 NT-Pro-B Natriuret Pep Impressions: Head CT 05/24/18 00:00 IMPRESSION: CHRONIC CHANGES OF ATROPHY AND MICROVASCULAR ISCHEMIA. NO ACUTE PROCESS. EVIDENCE OF ACUTE STROKE: NO. Cervical Spine CT 05/24/18 13:32 IMPRESSION: CHRONIC DEGENERATIVE CHANGES. NO ACUTE FINDINGS. Femur X-Ray 05/24/18 13:32 IMPRESSION: Fracture left femoral neck. Pelvis X-Ray 05/24/18 13:32 IMPRESSION: 1 Displaced fracture at the base of the left femoral neck. Assessment & Plan - Diagnosis (1) Left displaced femoral neck fracture Is this a current diagnosis for this admission?: Yes Plan: Patient has sustained a left displaced femoral neck fracture. Treatment options include observation versus operative intervention which would include left hip hemiarthroplasty. I have discussed the case with patient's son including the risks and benefits of both. Risks of nonoperative treatment including worsening medical condition with increased risk of pneumonia and thromboembolic event however given patient's advanced age and most recent stroke she certainly would be a high risk candidate for operative intervention with high morbidity and mortality. Family understands without operative treatment she would likely be on bed rest for transfers only and wheelchair for transportation and likely unable to ambulate. According to the son prior to her stroke she had been ambulating somewhat regularly. Family also understands risks of operative treatment including the high morbidity and mortality as noted above along with infection, postoperative pain, decreased ambulatory status despite operative treatment, infection and and deteriorating medical condition including dementia. At this point patient's family is concerning discussing their options and will contact us with their decision. I discussed the case with patient's son Mati Murry phone #[phone]
--- NOTE | 2018-05-25 13:58 | EKG REPORT ---
SEVERITY:- ABNORMAL ECG - SINUS RHYTHM PROBABLE LVH WITH SECONDARY REPOL ABNRM ANTERIOR Q WAVES, POSSIBLY DUE TO LVH : Confirmed by: Juancarlos Eldridge MD 25-May-2018 13:58:18
--- NOTE | 2018-05-25 20:29 | PDOC PROGRESS REPORT ---
Subjective Progress Note for:: 05/25/18 Subjective:: The patient is resting in her bed. She seems to be fairly comfortable. She is awake and alert but not oriented. A review of systems could not be obtained Reason For Visit: FALL,LEFT DISPLACED FEMORAL NECK FRACTURE,DEMENTIA Physical Exam Vital Signs: Temp Pulse Resp BP Pulse Ox 97.8 F 106 H 19 161/83 H 99 05/25/18 16:05 05/25/18 19:00 05/25/18 16:05 05/25/18 16:05 05/25/18 16:05 Intake & Output 05/24/18 05/25/18 05/26/18 06:59 06:59 06:59 Intake Total 1075 Output Total 250 450 Balance -250 625 Weight 38.1 kg General appearance: PRESENT: thin, other - Chronically ill-appearing Head exam: PRESENT: atraumatic, normocephalic Mouth exam: PRESENT: moist, tongue midline Respiratory exam: PRESENT: clear to auscultation raudel, decreased breath sounds - She is diminished in the lower bases bilaterally. Poor effort. ABSENT: rales, rhonchi, wheezes Cardiovascular exam: PRESENT: RRR. ABSENT: diastolic murmur, rubs, systolic murmur GI/Abdominal exam: PRESENT: normal bowel sounds, soft. ABSENT: distended, guarding, mass, organolmegaly, rebound, tenderness Rectal exam: PRESENT: deferred Extremities exam: ABSENT: calf tenderness, clubbing, pedal edema Musculoskeletal exam: ABSENT: ambulatory Neurological exam: PRESENT: awake. ABSENT: altered, oriented to person, oriented to place, oriented to time, oriented to situation Psychiatric exam: PRESENT: appropriate affect, normal mood. ABSENT: homicidal ideation, suicidal ideation Skin exam: PRESENT: dry, intact, warm. ABSENT: cyanosis, rash Results Laboratory Results: 05/25/18 03:46 05/25/18 03:46 05/25/18 05/25/18 05/25/18 03:46 03:46 03:46 WBC 13.1 H RBC 3.83 Hgb 11.6 L Hct 34.1 L MCV 89 MCH 30.4 MCHC 34.1 RDW 13.6 Plt Count 246 Seg Neutrophils % 81.7 H Lymphocytes % 11.3 L Monocytes % 6.4 Eosinophils % 0.2 Basophils % 0.4 Absolute Neutrophils 10.7 H Absolute Lymphocytes 1.5 Absolute Monocytes 0.8 Absolute Eosinophils 0.0 Absolute Basophils 0.0 Sodium 136.6 L Potassium 4.8 Chloride 101 Carbon Dioxide 22 Anion Gap 14 BUN 18 Creatinine 0.66 Est GFR ( Amer) > 60 Est GFR (Non-Af Amer) > 60 Glucose 135 H Calcium 9.5 Phosphorus 3.7 Magnesium 1.7 Total Bilirubin 1.1 AST 22 ALT 27 Alkaline Phosphatase 82 Total Protein 7.2 Albumin 3.6 TSH 7.15 H Free T4 1.47 05/24/18 05/24/18 05/25/18 21:30 21:30 03:46 Creatine Kinase 97 100 CK-MB (CK-2) 3.23 Troponin I 0.064 NT-Pro-B Natriuret Pep 05/25/18 05/25/18 05/25/18 03:46 03:46 09:25 Creatine Kinase 86 CK-MB (CK-2) 2.44 Troponin I 0.072 NT-Pro-B Natriuret Pep 3110 H 05/25/18 09:25 Creatine Kinase CK-MB (CK-2) 2.05 Troponin I 0.063 NT-Pro-B Natriuret Pep Impressions: Head CT 05/24/18 00:00 IMPRESSION: CHRONIC CHANGES OF ATROPHY AND MICROVASCULAR ISCHEMIA. NO ACUTE PROCESS. EVIDENCE OF ACUTE STROKE: NO. Cervical Spine CT 05/24/18 13:32 IMPRESSION: CHRONIC DEGENERATIVE CHANGES. NO ACUTE FINDINGS. Femur X-Ray 05/24/18 13:32 IMPRESSION: Fracture left femoral neck. Pelvis X-Ray 05/24/18 13:32 IMPRESSION: 1 Displaced fracture at the base of the left femoral neck. Assessment & Plan - Diagnosis (1) Left displaced femoral neck fracture Is this a current diagnosis for this admission?: Yes Plan: The patient is stabilized for the time being. She has not yet had surgery. Orthopedics is waiting to hear from the patient's son who is considering a transition to comfort measures. I did try to call him later on this afternoon and left a message on his phone. I plan to talk to him first thing in the morning. (2) Urinary tract infection Is this a current diagnosis for this admission?: Yes Plan: Urine cultures growing gram-negative rods. I started her on IV Rocephin today. (3) Scalp hematoma Is this a current diagnosis for this admission?: Yes Plan: Stable (4) History of CVA (cerebrovascular accident) Is this a current diagnosis for this admission?: Yes Plan: Currently on no medications (5) Dysphagia Is this a current diagnosis for this admission?: Yes Plan: For now continue diet as tolerated (6) Hyperlipidemia Is this a current diagnosis for this admission?: Yes Plan: On no medications at this point. (7) Hypertension Is this a current diagnosis for this admission?: Yes Plan: Stable on current regimen (8) Dementia Is this a current diagnosis for this admission?: Yes Plan: There are no family members at the bedside. I am not sure what her cognitive baseline is. She seems quite confused to me. (9) Leukocytosis Is this a current diagnosis for this admission?: Yes Plan: Likely reactive to hip fracture and possibly due to her urinary tract infection. She has been started on appropriate treatment. (10) Hyponatremia Is this a current diagnosis for this admission?: Yes Plan: She will have a chemistry panel drawn in the morning. This is quite mild (11) Hyperglycemia Is this a current diagnosis for this admission?: Yes Plan: Likely reactive to hip fracture (12) Do not resuscitate Is this a current diagnosis for this admission?: Yes - Time Time Spent with patient: 25-34 minutes - Inpatient Certification Medical Necessity: Need For IV Fluids - Inpatient hospitalization remains necessary. The patient has a hip fracture that could need surgical repair. She has a urinary tract infection for which I am giving her IV antibiotics. The patient's son is indicated that he might be thinking about a transition to comfort measures and getting hospice involved. I tried to call him this afternoon but he did not answer. I will try to get in touch with them first thing in the morning to discuss goals of care., Need for Pain Control, Need for IV Antibiotics, Need for Surgery, Other
[2018-05-25] MEDS ORDERED: KETOROLAC TROMETHAMINE INJ/PF 30 MG/1 ML SDV IV ONE (23:45)
[2018-05-26] MEDS ORDERED: METOPROLOL TARTRATE PF/INJ 5 MG/5 ML SDV IV ONE ×2 (00:30→23:45)
[2018-05-26 06:51] LABS: ABSOLUTE BASOPHILS # (AUTO) 0.1 10^3/uL (0.0-0.2); ABSOLUTE EOSINOPHILS # (AUTO) 0.2 10^3/uL (0.0-0.6); ABSOLUTE LYMPHOCYTES (AUTO) 1.4 10^3/uL (0.5-4.7); ABSOLUTE MONOCYTES (AUTO) 1.1 10^3/uL (0.1-1.4); ABSOLUTE NEUT (AUTO) 8.8 10^3/uL (1.7-8.2); BASOPHILS % (AUTO) 0.5 % (0-2); EOSINOPHILS % (AUTO) 1.9 % (0-6); HEMATOCRIT 33.1 % (36.0-47.0); HEMOGLOBIN 11.4 g/dL (12.0-15.5); LYMPHOCYTES % (AUTO) 11.9 % (13-45); MEAN CORPUSCULAR HEMOGLOBIN 30.7 pg (27.0-33.4); MEAN CORPUSCULAR HGB CONC 34.6 g/dL (32.0-36.0); MEAN CORPUSCULAR VOLUME 89 fl (80-97); MONOCYTES % (AUTO) 9.1 % (3-13); PLATELET COUNT 209 10^3/uL (150-450); RED BLOOD COUNT 3.72 10^6/uL (3.72-5.28); RED CELL DISTRIBUTION WIDTH 13.5 % (11.5-14.0); SEGMENTED NEUTROPHILS % (AUTO) 76.6 % (42-78); TOTAL CELLS COUNTED % (AUTO) 100 %; WHITE BLOOD COUNT 11.5 10^3/uL (4.0-10.5)
--- NOTE | 2018-05-26 07:09 | EKG REPORT ---
SEVERITY:- ABNORMAL ECG - SINUS RHYTHM WITH PACS LVH WITH SECONDARY REPOLARIZATION ABNORMALITY ANTERIOR INFARCT, AGE INDETERMINATE : Confirmed by: Juancarlos Eldridge MD 26-May-2018 07:08:57
[2018-05-26 07:11] LABS: ANION GAP 11 (5-19); BLOOD UREA NITROGEN 15 mg/dL (7-20); CALCIUM 9.3 mg/dL (8.4-10.2); CARBON DIOXIDE 24 mmol/L (22-30); CHLORIDE 98 mmol/L (98-107); GLUCOSE 107 mg/dL (75-110); PHOSPHORUS 3.8 mg/dL (2.5-4.5); POTASSIUM 4.3 mmol/L (3.6-5.0); SODIUM 132.5 mmol/L (137-145)
[2018-05-26] MEDS: HYDROCHLOROTHIAZIDE 12.5 MG TABLET PO SCH ×2 (11:01→11:08)
--- NOTE | 2018-05-26 18:15 | PDOC PROGRESS REPORT ---
Subjective Progress Note for:: 05/26/18 Subjective:: The patient is an unfortunate 82-year-old female with significantly advanced dementia at baseline. She presented after sustaining a fall and has a hip fracture. Orthopedic surgery has been consulted. The family was trying to decide whether they just wanted to place her on comfort measures or have it repaired. I spoke to the patient's family today. They would like to talk to orthopedics and get the hip repaired to give her a fighting chance to get over this. I have contacted Dr. Vargas who was going to get in touch with the patient 's family. The patient is resting in her bed. She seems to be fairly comfortable. She is awake and alert but not oriented. A review of systems could not be obtained Reason For Visit: FALL,LEFT DISPLACED FEMORAL NECK FRACTURE,DEMENTIA Physical Exam Vital Signs: Temp Pulse Resp BP Pulse Ox 97.8 F 88 16 150/83 H 100 05/26/18 16:00 05/26/18 16:00 05/26/18 16:00 05/26/18 16:00 05/26/18 12:00 Intake & Output 05/25/18 05/26/18 05/27/18 06:59 06:59 06:59 Intake Total 1075 360 Output Total 250 850 150 Balance -250 225 210 Weight 38.1 kg 43.2 kg General appearance: PRESENT: cooperative, thin Head exam: PRESENT: atraumatic, other - She has bitemporal muscle wasting Mouth exam: PRESENT: moist, tongue midline Respiratory exam: PRESENT: clear to auscultation raudel, other - This is a poor exam as she would not cooperate. Poor effort.. ABSENT: rales, rhonchi, wheezes Cardiovascular exam: PRESENT: RRR. ABSENT: diastolic murmur, rubs, systolic murmur GI/Abdominal exam: PRESENT: normal bowel sounds, soft. ABSENT: distended, guarding, mass, organolmegaly, rebound, tenderness Rectal exam: PRESENT: deferred Extremities exam: PRESENT: full ROM. ABSENT: calf tenderness, clubbing, pedal edema Musculoskeletal exam: ABSENT: ambulatory Neurological exam: PRESENT: alert, awake. ABSENT: altered, oriented to person, oriented to place, oriented to time, oriented to situation Psychiatric exam: PRESENT: appropriate affect, normal mood. ABSENT: homicidal ideation, suicidal ideation Skin exam: PRESENT: dry, intact, warm. ABSENT: cyanosis, rash Results Laboratory Results: 05/26/18 06:17 05/26/18 06:17 05/26/18 05/26/18 06:17 06:17 WBC 11.5 H RBC 3.72 Hgb 11.4 L Hct 33.1 L MCV 89 MCH 30.7 MCHC 34.6 RDW 13.5 Plt Count 209 Seg Neutrophils % 76.6 Lymphocytes % 11.9 L Monocytes % 9.1 Eosinophils % 1.9 Basophils % 0.5 Absolute Neutrophils 8.8 H Absolute Lymphocytes 1.4 Absolute Monocytes 1.1 Absolute Eosinophils 0.2 Absolute Basophils 0.1 Sodium 132.5 L Potassium 4.3 Chloride 98 Carbon Dioxide 24 Anion Gap 11 BUN 15 Creatinine 0.70 Est GFR ( Amer) > 60 Est GFR (Non-Af Amer) > 60 Glucose 107 Calcium 9.3 Phosphorus 3.8 Magnesium 1.7 05/24/18 05/24/18 05/25/18 21:30 21:30 03:46 Creatine Kinase 97 100 CK-MB (CK-2) 3.23 Troponin I 0.064 NT-Pro-B Natriuret Pep 05/25/18 05/25/18 05/25/18 03:46 03:46 09:25 Creatine Kinase 86 CK-MB (CK-2) 2.44 Troponin I 0.072 NT-Pro-B Natriuret Pep 3110 H 05/25/18 09:25 Creatine Kinase CK-MB (CK-2) 2.05 Troponin I 0.063 NT-Pro-B Natriuret Pep Impressions: Head CT 05/24/18 00:00 IMPRESSION: CHRONIC CHANGES OF ATROPHY AND MICROVASCULAR ISCHEMIA. NO ACUTE PROCESS. EVIDENCE OF ACUTE STROKE: NO. Cervical Spine CT 05/24/18 13:32 IMPRESSION: CHRONIC DEGENERATIVE CHANGES. NO ACUTE FINDINGS. Femur X-Ray 05/24/18 13:32 IMPRESSION: Fracture left femoral neck. Pelvis X-Ray 05/24/18 13:32 IMPRESSION: 1 Displaced fracture at the base of the left femoral neck. Assessment & Plan - Diagnosis (1) Left displaced femoral neck fracture Is this a current diagnosis for this admission?: Yes Plan: The family would like to talk to orthopedics and I have gotten in touch with them. They would like this repaired and to try rehab. I have informed them that she would have to be able to participate with the therapist qualify for rehab. They are going to discuss further with orthopedic surgeons but likely will pursue repair. (2) Urinary tract infection Is this a current diagnosis for this admission?: Yes Plan: Urine cultures growing gram-negative rods. This is day #2 of Rocephin. (3) Scalp hematoma Is this a current diagnosis for this admission?: Yes Plan: Stable (4) History of CVA (cerebrovascular accident) Is this a current diagnosis for this admission?: Yes Plan: Currently on no medications (5) Dysphagia Is this a current diagnosis for this admission?: Yes Plan: For now continue diet as tolerated (6) Hyperlipidemia Is this a current diagnosis for this admission?: Yes Plan: On no medications at this point. (7) Hypertension Is this a current diagnosis for this admission?: Yes Plan: Stable on current regimen (8) Dementia Is this a current diagnosis for this admission?: Yes Plan: There are no family members at the bedside. I am not sure what her cognitive baseline is. She seems quite confused to me. (9) Leukocytosis Is this a current diagnosis for this admission?: Yes Plan: Likely reactive to hip fracture and possibly due to her urinary tract infection. She has been started on appropriate treatment. (10) Hyponatremia Is this a current diagnosis for this admission?: Yes Plan: She will have a chemistry panel drawn in the morning. This is quite mild (11) Hyperglycemia Is this a current diagnosis for this admission?: Yes Plan: Likely reactive to hip fracture (12) Do not resuscitate Is this a current diagnosis for this admission?: Yes - Time Time Spent with patient: 25-34 minutes - Inpatient Certification Medical Necessity: Need for IV Antibiotics, Need for Surgery, Other - Inpatient hospitalization remains necessary. The patient is going to need surgical repair of her hip fracture. She is requiring parenteral antibiotics for a urinary tract infection. Timing of disposition will be determined by her clinical course. Ultimately if all goes well she will require subacute rehabilitation versus hospice at discharge.
[2018-05-27 05:20] LABS: ABSOLUTE EOSINOPHILS # (AUTO) 0.3 10^3/uL (0.0-0.6); ABSOLUTE LYMPHOCYTES (AUTO) 1.2 10^3/uL (0.5-4.7); ABSOLUTE MONOCYTES (AUTO) 0.7 10^3/uL (0.1-1.4); ABSOLUTE NEUT (AUTO) 6.8 10^3/uL (1.7-8.2); BASOPHILS % (AUTO) 0.4 % (0-2); EOSINOPHILS % (AUTO) 2.9 % (0-6); HEMATOCRIT 36.1 % (36.0-47.0); HEMOGLOBIN 12.6 g/dL (12.0-15.5); LYMPHOCYTES % (AUTO) 13.1 % (13-45); MEAN CORPUSCULAR HEMOGLOBIN 31.2 pg (27.0-33.4); MEAN CORPUSCULAR HGB CONC 34.8 g/dL (32.0-36.0); MEAN CORPUSCULAR VOLUME 89 fl (80-97); MONOCYTES % (AUTO) 7.8 % (3-13); PLATELET COUNT 221 10^3/uL (150-450); RED BLOOD COUNT 4.03 10^6/uL (3.72-5.28); RED CELL DISTRIBUTION WIDTH 13.8 % (11.5-14.0); SEGMENTED NEUTROPHILS % (AUTO) 75.8 % (42-78); TOTAL CELLS COUNTED % (AUTO) 100 %
[2018-05-27 05:39] LABS: BLOOD UREA NITROGEN 23 mg/dL (7-20); CALCIUM 9.6 mg/dL (8.4-10.2); CARBON DIOXIDE 24 mmol/L (22-30); CHLORIDE 98 mmol/L (98-107); GLUCOSE 101 mg/dL (75-110); POTASSIUM 4.5 mmol/L (3.6-5.0); SODIUM 135.4 mmol/L (137-145)
[2018-05-27 05:40] LABS: ANION GAP 13 (5-19); PHOSPHORUS 4.4 mg/dL (2.5-4.5)
[2018-05-27] MEDS: LANSOPRAZOLE 30 MG TAB.RAP.DR PO SCH (06:23)
[2018-05-27] MEDS: HYDROCHLOROTHIAZIDE 12.5 MG TABLET PO SCH (09:45)
--- NOTE | 2018-05-27 14:57 | PDOC PROGRESS REPORT ---
Subjective Progress Note for:: 05/27/18 Subjective:: The patient is an unfortunate 82-year-old female with significantly advanced dementia at baseline. She presented after sustaining a fall and has a hip fracture. Orthopedic surgery has been consulted. The family was trying to decide whether they just wanted to place her on comfort measures or have it repaired. I spoke to the patient's family today. They would like to talk to orthopedics and get the hip repaired to give her a fighting chance to get over this. I have contacted Dr. Vargas who was going to get in touch with the patient 's family. 05/27/18 The patient is resting in her bed, awake and being fed. She seems to be fairly comfortable. She denies pain at this time. Reason For Visit: FALL,LEFT DISPLACED FEMORAL NECK FRACTURE,DEMENTIA Physical Exam Vital Signs: Temp Pulse Resp BP Pulse Ox 98.2 F 91 12 146/76 H 98 05/27/18 12:03 05/27/18 12:03 05/27/18 12:03 05/27/18 12:03 05/27/18 12:00 Pulse Oximeter Continuous Start: 05/26/18 15: 36 Freq: RTQ4 Status: Active Document 05/27/18 12:00 [facility] (Rec: 05/27/18 12:08 [facility] [id number]) Pulse Oximetry Assessment Oxygen Saturation (92-100) 98 Oxygen Delivery Method Room Air Equipment Usage Equipment in Use Continuous SpO2 Machine # 10 Intake & Output 05/26/18 05/27/18 05/28/18 06:59 06:59 06:59 Intake Total 1075 360 Output Total 850 520 Balance 225 -160 Weight 43.2 kg 43.1 kg General appearance: PRESENT: cooperative, thin Head exam: PRESENT: atraumatic Respiratory exam: PRESENT: clear to auscultation raudel. ABSENT: rales, rhonchi, wheezes Cardiovascular exam: PRESENT: RRR. ABSENT: diastolic murmur, rubs, systolic murmur GI/Abdominal exam: PRESENT: normal bowel sounds, soft. ABSENT: distended, guarding, mass, organolmegaly, rebound, tenderness Rectal exam: PRESENT: deferred Extremities exam: PRESENT: . ABSENT: calf tenderness, clubbing, pedal edema Neurological exam: PRESENT: alert, awake. ABSENT: orientation, oriented to person, oriented to place, oriented to time, oriented to situation Psychiatric exam: PRESENT: appropriate affect, normal mood. ABSENT: homicidal ideation, suicidal ideation Skin exam: PRESENT: dry, intact, warm. ABSENT: cyanosis, rash Results Laboratory Results: 05/27/18 04:27 05/27/18 04:27 05/27/18 05/27/18 04:27 04:27 WBC 9.0 RBC 4.03 Hgb 12.6 Hct 36.1 MCV 89 MCH 31.2 MCHC 34.8 RDW 13.8 Plt Count 221 Seg Neutrophils % 75.8 Lymphocytes % 13.1 Monocytes % 7.8 Eosinophils % 2.9 Basophils % 0.4 Absolute Neutrophils 6.8 Absolute Lymphocytes 1.2 Absolute Monocytes 0.7 Absolute Eosinophils 0.3 Absolute Basophils 0.0 Sodium 135.4 L Potassium 4.5 Chloride 98 Carbon Dioxide 24 Anion Gap 13 BUN 23 H Creatinine 0.81 Est GFR ( Amer) > 60 Est GFR (Non-Af Amer) > 60 Glucose 101 Calcium 9.6 Phosphorus 4.4 Magnesium 1.9 05/24/18 05/24/18 05/25/18 21:30 21:30 03:46 Creatine Kinase 97 100 CK-MB (CK-2) 3.23 Troponin I 0.064 NT-Pro-B Natriuret Pep 05/25/18 05/25/18 05/25/18 03:46 03:46 09:25 Creatine Kinase 86 CK-MB (CK-2) 2.44 Troponin I 0.072 NT-Pro-B Natriuret Pep 3110 H 05/25/18 09:25 Creatine Kinase CK-MB (CK-2) 2.05 Troponin I 0.063 NT-Pro-B Natriuret Pep Impressions: Head CT 05/24/18 00:00 IMPRESSION: CHRONIC CHANGES OF ATROPHY AND MICROVASCULAR ISCHEMIA. NO ACUTE PROCESS. EVIDENCE OF ACUTE STROKE: NO. Cervical Spine CT 05/24/18 13:32 IMPRESSION: CHRONIC DEGENERATIVE CHANGES. NO ACUTE FINDINGS. Femur X-Ray 05/24/18 13:32 IMPRESSION: Fracture left femoral neck. Pelvis X-Ray 05/24/18 13:32 IMPRESSION: 1 Displaced fracture at the base of the left femoral neck. Assessment & Plan - Plan Summary Plan Summary: (1) Left displaced femoral neck fracture Is this a current diagnosis for this admission?: Yes Plan: The family would like this repaired and to try rehab. They are going to discuss further with orthopedic surgeons but likely will pursue repair. Also. Orthopedist trying/planning to get in touch with them and will likely plan surgery for tomorrow. (2) Urinary tract infection Is this a current diagnosis for this admission?: Yes Plan: Urine cultures growing gram-negative rods. This is day #3 of Rocephin. (3) Scalp hematoma Is this a current diagnosis for this admission?: Yes Plan: Stable (4) History of CVA (cerebrovascular accident) Is this a current diagnosis for this admission?: Yes Plan: Currently on no medications (5) Dysphagia Is this a current diagnosis for this admission?: Yes Plan: For now continue diet as tolerated (6) Hyperlipidemia Is this a current diagnosis for this admission?: Yes Plan: On no medications at this point. (7) Hypertension Is this a current diagnosis for this admission?: Yes Plan: Stable on current regimen (8) Dementia Is this a current diagnosis for this admission?: Yes Plan: (9) Leukocytosis Is this a current diagnosis for this admission?: Yes Plan: Improved on abx. (10) Hyponatremia Is this a current diagnosis for this admission?: Yes Plan: Improved (11) Hyperglycemia Is this a current diagnosis for this admission?: Yes Plan: Likely reactive to hip fracture. Improved. (12) Do not resuscitate Is this a current diagnosis for this admission?: Yes
--- NOTE | 2018-05-27 20:05 | PDOC PROGRESS REPORT ---
Subjective Progress Note for:: 05/27/18 Subjective:: Patient resting in bed comfortably with no acute issues overnight. Unable to get a history due to her dementia. Reason For Visit: FALL,LEFT DISPLACED FEMORAL NECK FRACTURE,DEMENTIA Physical Exam Vital Signs: Temp Pulse Resp BP Pulse Ox 36.8 C 94 16 139/69 H 99 05/27/18 15:54 05/27/18 19:00 05/27/18 15:54 05/27/18 15:54 05/27/18 16:00 Pulse Oximeter Continuous Start: 05/26/18 15: 36 Freq: RTQ4 Status: Active Document 05/27/18 16:00 [facility] (Rec: 05/27/18 17:49 [facility] [id number]) Pulse Oximetry Assessment Oxygen Saturation (92-100) 99 Oxygen Delivery Method Room Air Fraction of Inspired Oxygen (FIO2) 21 Equipment Usage Equipment in Use Continuous SpO2 Machine # 10 Intake & Output 05/26/18 05/27/18 05/28/18 06:59 06:59 06:59 Intake Total 1075 360 Output Total 850 520 350 Balance 225 -160 -350 Weight 43.2 kg 43.1 kg Adult Front & Back Image: 1 - Short and externally rotated left lower extremity. Response to stimuli with EHL FHL motion and ankle dorsiflexion noted. Good capillary refill. Tender palpation over the groin. Results Laboratory Results: 05/27/18 04:27 05/27/18 04:27 05/27/18 05/27/18 04:27 04:27 WBC 9.0 RBC 4.03 Hgb 12.6 Hct 36.1 MCV 89 MCH 31.2 MCHC 34.8 RDW 13.8 Plt Count 221 Seg Neutrophils % 75.8 Lymphocytes % 13.1 Monocytes % 7.8 Eosinophils % 2.9 Basophils % 0.4 Absolute Neutrophils 6.8 Absolute Lymphocytes 1.2 Absolute Monocytes 0.7 Absolute Eosinophils 0.3 Absolute Basophils 0.0 Sodium 135.4 L Potassium 4.5 Chloride 98 Carbon Dioxide 24 Anion Gap 13 BUN 23 H Creatinine 0.81 Est GFR ( Amer) > 60 Est GFR (Non-Af Amer) > 60 Glucose 101 Calcium 9.6 Phosphorus 4.4 Magnesium 1.9 05/24/18 05/24/18 05/25/18 21:30 21:30 03:46 Creatine Kinase 97 100 CK-MB (CK-2) 3.23 Troponin I 0.064 NT-Pro-B Natriuret Pep 05/25/18 05/25/18 05/25/18 03:46 03:46 09:25 Creatine Kinase 86 CK-MB (CK-2) 2.44 Troponin I 0.072 NT-Pro-B Natriuret Pep 3110 H 05/25/18 09:25 Creatine Kinase CK-MB (CK-2) 2.05 Troponin I 0.063 NT-Pro-B Natriuret Pep Impressions: Head CT 05/24/18 00:00 IMPRESSION: CHRONIC CHANGES OF ATROPHY AND MICROVASCULAR ISCHEMIA. NO ACUTE PROCESS. EVIDENCE OF ACUTE STROKE: NO. Cervical Spine CT 05/24/18 13:32 IMPRESSION: CHRONIC DEGENERATIVE CHANGES. NO ACUTE FINDINGS. Femur X-Ray 05/24/18 13:32 IMPRESSION: Fracture left femoral neck. Pelvis X-Ray 05/24/18 13:32 IMPRESSION: 1 Displaced fracture at the base of the left femoral neck. Status: Image reviewed by me Assessment & Plan - Diagnosis (1) Hip fracture Qualifiers: Encounter type: initial encounter Fracture type: closed Laterality: left Qualified Code(s): S72.002A - Fracture of unspecified part of neck of left femur, initial encounter for closed fracture Is this a current diagnosis for this admission?: Yes Plan: 82-year-old female with significant comorbidities who currently has a displaced left femoral neck fracture. After last couple days the family have discussed to proceed with left hip hemiarthroplasty. The well aware that her mother is a high risk patient and could potentially result in but they are willing on taking this risk. Discussed the patient with anesthesia who recommended a cardiology consult and once cleared to proceed with surgery tomorrow. Patient has been preop. Awaiting cardiology consult.
[2018-05-28] MEDS ORDERED: RINGERS SOLUTION,LACTATED 1,000 ML IV PRN
[2018-05-28] MEDS: LANSOPRAZOLE 30 MG TAB.RAP.DR PO SCH (05:13)
[2018-05-28 07:15] LABS: ABSOLUTE BASOPHILS # (AUTO) 0.1 10^3/uL (0.0-0.2); ABSOLUTE EOSINOPHILS # (AUTO) 0.1 10^3/uL (0.0-0.6); ABSOLUTE LYMPHOCYTES (AUTO) 1.5 10^3/uL (0.5-4.7); ABSOLUTE NEUT (AUTO) 8.5 10^3/uL (1.7-8.2); BASOPHILS % (AUTO) 0.6 % (0-2); EOSINOPHILS % (AUTO) 1.3 % (0-6); HEMATOCRIT 31.8 % (36.0-47.0); HEMOGLOBIN 11.1 g/dL (12.0-15.5); LYMPHOCYTES % (AUTO) 13.4 % (13-45); MEAN CORPUSCULAR HEMOGLOBIN 30.9 pg (27.0-33.4); MEAN CORPUSCULAR HGB CONC 34.9 g/dL (32.0-36.0); MEAN CORPUSCULAR VOLUME 89 fl (80-97); MONOCYTES % (AUTO) 8.9 % (3-13); PLATELET COUNT 226 10^3/uL (150-450); RED BLOOD COUNT 3.59 10^6/uL (3.72-5.28); RED CELL DISTRIBUTION WIDTH 13.3 % (11.5-14.0); SEGMENTED NEUTROPHILS % (AUTO) 75.8 % (42-78); TOTAL CELLS COUNTED % (AUTO) 100 %; WHITE BLOOD COUNT 11.2 10^3/uL (4.0-10.5)
[2018-05-28 07:46] LABS: ANION GAP 14 (5-19); BLOOD UREA NITROGEN 25 mg/dL (7-20); CALCIUM 9.4 mg/dL (8.4-10.2); CARBON DIOXIDE 20 mmol/L (22-30); CHLORIDE 100 mmol/L (98-107); GLUCOSE 106 mg/dL (75-110); POTASSIUM 3.8 mmol/L (3.6-5.0); SODIUM 133.8 mmol/L (137-145)
[2018-05-28] MEDS: HYDROCHLOROTHIAZIDE 12.5 MG TABLET PO SCH (11:30)
[2018-05-28] MEDS ORDERED: HYDROCHLOROTHIAZIDE 12.5 MG TABLET PO ONE (12:30)
--- NOTE | 2018-05-28 14:48 | PDOC PROGRESS REPORT ---
Subjective Progress Note for:: 05/28/18 Subjective:: Unfortunate 82-year-old female with significantly advanced dementia at baseline, who presented after sustaining a fall and found to have a hip fracture. Orthopedic surgery was consulted. The family interested in surgical repair. Orthopedist exposed to anesthesiology who wanted cardiac clearance. Cardiology evaluation pending. Today the patient is resting in her bed and seems to be fairly comfortable. She is awake and answers "fine" when asked how she was, otherwise unable to obtain further history. Reason For Visit: FALL,LEFT DISPLACED FEMORAL NECK FRACTURE,DEMENTIA Physical Exam Vital Signs: Temp Pulse Resp BP Pulse Ox 98.4 F 96 16 180/80 H 100 05/28/18 12:00 05/28/18 12:00 05/28/18 12:00 05/28/18 12:00 05/28/18 12:00 Pulse Oximeter Continuous Start: 05/26/18 15: 36 Freq: RTQ4 Status: Active Document 05/28/18 12:00 [facility] (Rec: 05/28/18 12:16 [facility] [id number]) Pulse Oximetry Assessment Oxygen Saturation (92-100) 99 Oxygen Delivery Method Room Air Equipment Usage Equipment in Use Continuous SpO2 Machine # 10 Intake & Output 05/27/18 05/28/18 05/29/18 06:59 06:59 06:59 Intake Total 360 0 Output Total 520 650 Balance -160 -650 Weight 43.1 kg 43.4 kg General appearance: PRESENT: cooperative, no acute distress Head exam: PRESENT: Scalp hematoma stable Respiratory exam: PRESENT: clear to auscultation raudel. ABSENT: rales, rhonchi, wheezes Cardiovascular exam: PRESENT: RRR. ABSENT: diastolic murmur, rubs, systolic murmur GI/Abdominal exam: PRESENT: normal bowel sounds, soft. ABSENT: distended, guarding, mass, organolmegaly, rebound, tenderness Rectal exam: PRESENT: deferred Extremities exam: PRESENT: . ABSENT: calf tenderness, clubbing, pedal edema Neurological exam: PRESENT: alert, awake. Otherwise not cooperative enough to make any meaningful further assessment. Skin exam: PRESENT: dry, intact, warm. ABSENT: cyanosis, rash Results Laboratory Results: 05/28/18 07:04 05/28/18 07:04 05/27/18 05/28/18 05/28/18 21:45 07:04 07:04 WBC 11.2 H RBC 3.59 L Hgb 11.1 L Hct 31.8 L MCV 89 MCH 30.9 MCHC 34.9 RDW 13.3 Plt Count 226 Seg Neutrophils % 75.8 Lymphocytes % 13.4 Monocytes % 8.9 Eosinophils % 1.3 Basophils % 0.6 Absolute Neutrophils 8.5 H Absolute Lymphocytes 1.5 Absolute Monocytes 1.0 Absolute Eosinophils 0.1 Absolute Basophils 0.1 Sodium 133.8 L Potassium 3.8 Chloride 100 Carbon Dioxide 20 L Anion Gap 14 BUN 25 H Creatinine 0.62 Est GFR ( Amer) > 60 Est GFR (Non-Af Amer) > 60 Glucose 106 Calcium 9.4 Blood Type O NEGATIVE Antibody Screen NEGATIVE 05/24/18 05/24/18 05/25/18 21:30 21:30 03:46 Creatine Kinase 97 100 CK-MB (CK-2) 3.23 Troponin I 0.064 NT-Pro-B Natriuret Pep 05/25/18 05/25/18 05/25/18 03:46 03:46 09:25 Creatine Kinase 86 CK-MB (CK-2) 2.44 Troponin I 0.072 NT-Pro-B Natriuret Pep 3110 H 05/25/18 09:25 Creatine Kinase CK-MB (CK-2) 2.05 Troponin I 0.063 NT-Pro-B Natriuret Pep Impressions: Head CT 05/24/18 00:00 IMPRESSION: CHRONIC CHANGES OF ATROPHY AND MICROVASCULAR ISCHEMIA. NO ACUTE PROCESS. EVIDENCE OF ACUTE STROKE: NO. Cervical Spine CT 05/24/18 13:32 IMPRESSION: CHRONIC DEGENERATIVE CHANGES. NO ACUTE FINDINGS. Femur X-Ray 05/24/18 13:32 IMPRESSION: Fracture left femoral neck. Pelvis X-Ray 05/24/18 13:32 IMPRESSION: 1 Displaced fracture at the base of the left femoral neck. Assessment & Plan - Plan Summary Plan Summary: (1) Left displaced femoral neck fracture Is this a current diagnosis for this admission?: Yes Plan: The family would like this repaired and to try rehab. Orthopedists have discussed with them and anesthesia requested cardiology clearance. [employer] to evaluate patient. (2) Urinary tract infection Is this a current diagnosis for this admission?: Yes Plan: Urine cultures growing E. coli. This is day #4 of Rocephin. (3) Scalp hematoma Is this a current diagnosis for this admission?: Yes Plan: Stable (4) History of CVA (cerebrovascular accident) Is this a current diagnosis for this admission?: Yes Plan: Stable (5) Dysphagia Is this a current diagnosis for this admission?: Yes Plan: For now continue diet as tolerated (6) Hyperlipidemia Is this a current diagnosis for this admission?: Yes Plan: On no medications at this point. (7) Hypertension Is this a current diagnosis for this admission?: Yes Plan: Stable on current regimen (8) Dementia Is this a current diagnosis for this admission?: Yes Plan: (9) Leukocytosis Is this a current diagnosis for this admission?: Yes Plan: This had improved on abx. Elevation today may be secondary to reactive, both will follow-up in a.m. Also watch for fevers. Consider further workup if continues to increase. (10) Hyponatremia Is this a current diagnosis for this admission?: Yes Plan: Mild. Stable. (11) Hyperglycemia Is this a current diagnosis for this admission?: Yes Plan: Improved. (12) Do not resuscitate Is this a current diagnosis for this admission?: Yes
--- NOTE | 2018-05-28 17:11 | PDOC PROGRESS REPORT ---
Subjective Progress Note for:: 05/28/18 Subjective:: Patient continues to be demented and in bed. No issues overnight. Reason For Visit: FALL,LEFT DISPLACED FEMORAL NECK FRACTURE,DEMENTIA Physical Exam Vital Signs: Temp Pulse Resp BP Pulse Ox 36.4 C 89 16 165/82 H 94 05/28/18 16:00 05/28/18 16:00 05/28/18 16:00 05/28/18 16:00 05/28/18 16:00 Pulse Oximeter Continuous Start: 05/26/18 15: 36 Freq: RTQ4 Status: Active Document 05/28/18 16:00 [facility] (Rec: 05/28/18 16:59 [facility] [id number]) Pulse Oximetry Assessment Oxygen Saturation (92-100) 94 Oxygen Flow Rate (L/min) 2 Oxygen Delivery Method Nasal Cannula Fraction of Inspired Oxygen (FIO2) 28 Equipment Usage Equipment in Use Continuous SpO2 Machine # 10 Intake & Output 05/27/18 05/28/18 05/29/18 06:59 06:59 06:59 Intake Total 360 0 Output Total 520 650 Balance -160 -650 Weight 43.1 kg 43.4 kg Adult Front & Back Image: 1 - Short and externally rotated left lower extremity. Moves the toes to stimuli only. Good capillary refill. Tender palpation of the left hip. Results Laboratory Results: 05/28/18 07:04 05/28/18 07:04 05/27/18 05/28/18 05/28/18 21:45 07:04 07:04 WBC 11.2 H RBC 3.59 L Hgb 11.1 L Hct 31.8 L MCV 89 MCH 30.9 MCHC 34.9 RDW 13.3 Plt Count 226 Seg Neutrophils % 75.8 Lymphocytes % 13.4 Monocytes % 8.9 Eosinophils % 1.3 Basophils % 0.6 Absolute Neutrophils 8.5 H Absolute Lymphocytes 1.5 Absolute Monocytes 1.0 Absolute Eosinophils 0.1 Absolute Basophils 0.1 Sodium 133.8 L Potassium 3.8 Chloride 100 Carbon Dioxide 20 L Anion Gap 14 BUN 25 H Creatinine 0.62 Est GFR ( Amer) > 60 Est GFR (Non-Af Amer) > 60 Glucose 106 Calcium 9.4 Blood Type O NEGATIVE Antibody Screen NEGATIVE 05/24/18 05/24/18 05/25/18 21:30 21:30 03:46 Creatine Kinase 97 100 CK-MB (CK-2) 3.23 Troponin I 0.064 NT-Pro-B Natriuret Pep 05/25/18 05/25/18 05/25/18 03:46 03:46 09:25 Creatine Kinase 86 CK-MB (CK-2) 2.44 Troponin I 0.072 NT-Pro-B Natriuret Pep 3110 H 05/25/18 09:25 Creatine Kinase CK-MB (CK-2) 2.05 Troponin I 0.063 NT-Pro-B Natriuret Pep Impressions: Head CT 05/24/18 00:00 IMPRESSION: CHRONIC CHANGES OF ATROPHY AND MICROVASCULAR ISCHEMIA. NO ACUTE PROCESS. EVIDENCE OF ACUTE STROKE: NO. Cervical Spine CT 05/24/18 13:32 IMPRESSION: CHRONIC DEGENERATIVE CHANGES. NO ACUTE FINDINGS. Femur X-Ray 05/24/18 13:32 IMPRESSION: Fracture left femoral neck. Pelvis X-Ray 05/24/18 13:32 IMPRESSION: 1 Displaced fracture at the base of the left femoral neck. Status: Image reviewed by me Assessment & Plan - Diagnosis (1) Hip fracture Qualifiers: Encounter type: initial encounter Fracture type: closed Laterality: left Qualified Code(s): S72.002A - Fracture of unspecified part of neck of left femur, initial encounter for closed fracture Is this a current diagnosis for this admission?: Yes Plan: 82-year-old patient with dementia and recent stroke who is a high risk candidate for left hip hemiarthroplasty. I spoke with the son yesterday who seemed that he is going to assume the risks of surgery but after discussing with anesthesia today and with myself patient's son and caregiver discussing with the family and they will forego surgery. At this point we will sign off. We recommend that at this point patient will return to [facility]term [facility].
[2018-05-29] MEDS: LANSOPRAZOLE 30 MG TAB.RAP.DR PO SCH (05:06)
[2018-05-29] MEDS: HYDROCHLOROTHIAZIDE 12.5 MG TABLET PO SCH (12:24)
--- NOTE | 2018-05-29 15:19 | PDOC PROGRESS REPORT ---
Subjective Progress Note for:: 05/29/18 Subjective:: Patient seen in room unable to provide any history. Appears to be comfortable Reason For Visit: FALL,LEFT DISPLACED FEMORAL NECK FRACTURE,DEMENTIA Physical Exam Vital Signs: Temp Pulse Resp BP Pulse Ox 97.6 F 72 16 152/90 H 95 05/29/18 12:00 05/29/18 12:00 05/29/18 12:00 05/29/18 12:00 05/29/18 12:00 Pulse Oximeter Continuous Start: 05/26/18 15: 36 Freq: RTQ4 Status: Complete Document 05/29/18 11:36 TPO (Rec: 05/29/18 11:36 TPO [email or web address]) Pulse Oximetry Assessment Equipment Usage Equipment Discontinued Continuous SpO2 Machine # 10 Intake & Output 05/28/18 05/29/18 05/30/18 06:59 06:59 06:59 Intake Total 0 0 Output Total 650 650 Balance -650 -650 Weight 43.4 kg 42.1 kg General appearance: PRESENT: no acute distress, other - Elderly and frail poorly nourished Head exam: PRESENT: atraumatic Mouth exam: PRESENT: dry mucosa Cardiovascular exam: PRESENT: RRR, +S1, +S2 GI/Abdominal exam: PRESENT: normal bowel sounds, soft. ABSENT: distended, guarding, mass, organolmegaly, rebound, tenderness Rectal exam: PRESENT: deferred Musculoskeletal exam: ABSENT: ambulatory, full ROM Neurological exam: PRESENT: alert. ABSENT: oriented to person, oriented to place Results Laboratory Results: 05/28/18 07:04 05/28/18 07:04 05/24/18 05/24/18 05/25/18 21:30 21:30 03:46 Creatine Kinase 97 100 CK-MB (CK-2) 3.23 Troponin I 0.064 NT-Pro-B Natriuret Pep 05/25/18 05/25/18 05/25/18 03:46 03:46 09:25 Creatine Kinase 86 CK-MB (CK-2) 2.44 Troponin I 0.072 NT-Pro-B Natriuret Pep 3110 H 05/25/18 09:25 Creatine Kinase CK-MB (CK-2) 2.05 Troponin I 0.063 NT-Pro-B Natriuret Pep Impressions: Head CT 05/24/18 00:00 IMPRESSION: CHRONIC CHANGES OF ATROPHY AND MICROVASCULAR ISCHEMIA. NO ACUTE PROCESS. EVIDENCE OF ACUTE STROKE: NO. Cervical Spine CT 05/24/18 13:32 IMPRESSION: CHRONIC DEGENERATIVE CHANGES. NO ACUTE FINDINGS. Femur X-Ray 05/24/18 13:32 IMPRESSION: Fracture left femoral neck. Pelvis X-Ray 05/24/18 13:32 IMPRESSION: 1 Displaced fracture at the base of the left femoral neck. Assessment & Plan - Time Time Spent with patient: 15-24 minutes Medications reviewed and adjusted accordingly: Yes Anticipated discharge: SNF Within: within 72 hours - Inpatient Certification Based on my medical assessment, after consideration of the patient's comorbidities, presenting symptoms, or acuity I expect that the services needed warrant INPATIENT care.: Yes Medical Necessity: Need for Pain Control, Risk of Complication if Not Cared For in Hospital - Plan Summary Plan Summary: Patient was seen by orthopedist and he has decided at this point that risk of surgery probably still high and so no orthopedic intervention is planned Left displaced femoral neck fracture possibly rehab this 2. Urinary tract infection secondary to E. coli currently on Rocephin day 5 will review 3. Scalp hematoma secondary to fall stable 4. History of CVA chronic 5. Dysphagia awaiting speech therapy evaluation 6. Hyperlipidemia 7. Hypertension we will add Vasotec IV until patient able to swallow 8. Advanced dementia 9. Leukocytosis
[2018-05-29] MEDS: ENALAPRILAT DIHYDRATE INJ/PF 1.25 MG/1 ML SDV IV SCH (20:22)
[2018-05-30] MEDS: ENALAPRILAT DIHYDRATE INJ/PF 1.25 MG/1 ML SDV IV SCH ×4 (00:08→17:54)
[2018-05-30] MEDS: LANSOPRAZOLE 30 MG TAB.RAP.DR PO SCH (05:16)
[2018-05-30 05:59] LABS: ABSOLUTE EOSINOPHILS # (AUTO) 0.1 10^3/uL (0.0-0.6); ABSOLUTE LYMPHOCYTES (AUTO) 1.2 10^3/uL (0.5-4.7); ABSOLUTE MONOCYTES (AUTO) 1.1 10^3/uL (0.1-1.4); ABSOLUTE NEUT (AUTO) 8.7 10^3/uL (1.7-8.2); BASOPHILS % (AUTO) 0.4 % (0-2); EOSINOPHILS % (AUTO) 0.6 % (0-6); HEMATOCRIT 32.4 % (36.0-47.0); HEMOGLOBIN 11.3 g/dL (12.0-15.5); LYMPHOCYTES % (AUTO) 10.5 % (13-45); MEAN CORPUSCULAR HEMOGLOBIN 30.7 pg (27.0-33.4); MEAN CORPUSCULAR HGB CONC 34.9 g/dL (32.0-36.0); MEAN CORPUSCULAR VOLUME 88 fl (80-97); MONOCYTES % (AUTO) 9.6 % (3-13); PLATELET COUNT 293 10^3/uL (150-450); RED BLOOD COUNT 3.68 10^6/uL (3.72-5.28); RED CELL DISTRIBUTION WIDTH 13.4 % (11.5-14.0); SEGMENTED NEUTROPHILS % (AUTO) 78.9 % (42-78); TOTAL CELLS COUNTED % (AUTO) 100 %
[2018-05-30 06:33] LABS: ANION GAP 16 (5-19); BLOOD UREA NITROGEN 29 mg/dL (7-20); CALCIUM 9.8 mg/dL (8.4-10.2); CARBON DIOXIDE 21 mmol/L (22-30); CHLORIDE 100 mmol/L (98-107); GLUCOSE 99 mg/dL (75-110); POTASSIUM 3.8 mmol/L (3.6-5.0); SODIUM 136.6 mmol/L (137-145)
[2018-05-30] MEDS: HYDROCHLOROTHIAZIDE 12.5 MG TABLET PO SCH (10:45)
--- NOTE | 2018-05-30 15:49 | PDOC PROGRESS REPORT ---
Subjective Progress Note for:: 05/30/18 Subjective:: Patient seen in room unable to provide any history. Reason For Visit: FALL,LEFT DISPLACED FEMORAL NECK FRACTURE,DEMENTIA Physical Exam Vital Signs: Temp Pulse Resp BP Pulse Ox 99 F 89 14 148/73 H 97 05/30/18 12:00 05/30/18 12:00 05/30/18 12:00 05/30/18 12:00 05/30/18 12:00 Pulse Oximeter Continuous Start: 05/26/18 15: 36 Freq: RTQ4 Status: Complete Document 05/29/18 11:36 TPO (Rec: 05/29/18 11:36 TPO [email or web address]) Pulse Oximetry Assessment Equipment Usage Equipment Discontinued Continuous SpO2 Machine # 10 Intake & Output 05/29/18 05/30/18 05/31/18 06:59 06:59 06:59 Intake Total 0 0 Output Total 650 600 Balance -650 -600 Weight 42.1 kg 41.4 kg General appearance: PRESENT: no acute distress, other - elderly and frail, non verbal Head exam: PRESENT: atraumatic Mouth exam: PRESENT: dry mucosa Neck exam: ABSENT: carotid bruit, JVD, lymphadenopathy, thyromegaly Respiratory exam: PRESENT: clear to auscultation raudel. ABSENT: rales, rhonchi Pulses: PRESENT: normal dorsalis pedis pul Rectal exam: PRESENT: deferred Extremities exam: PRESENT: other - moving all extremities Neurological exam: PRESENT: alert, other - non verbal Results Laboratory Results: 05/30/18 05:40 05/30/18 05:40 05/30/18 05/30/18 05:40 05:40 WBC 11.0 H RBC 3.68 L Hgb 11.3 L Hct 32.4 L MCV 88 MCH 30.7 MCHC 34.9 RDW 13.4 Plt Count 293 Seg Neutrophils % 78.9 H Lymphocytes % 10.5 L Monocytes % 9.6 Eosinophils % 0.6 Basophils % 0.4 Absolute Neutrophils 8.7 H Absolute Lymphocytes 1.2 Absolute Monocytes 1.1 Absolute Eosinophils 0.1 Absolute Basophils 0.0 Sodium 136.6 L Potassium 3.8 Chloride 100 Carbon Dioxide 21 L Anion Gap 16 BUN 29 H Creatinine 0.53 Est GFR ( Amer) > 60 Est GFR (Non-Af Amer) > 60 Glucose 99 Calcium 9.8 0805/24/18 05/25/18 21:30 21:30 03:46 Creatine Kinase 97 100 CK-MB (CK-2) 3.23 Troponin I 0.064 NT-Pro-B Natriuret Pep 05/25/18 05/25/18 05/25/18 03:46 03:46 09:25 Creatine Kinase 86 CK-MB (CK-2) 2.44 Troponin I 0.072 NT-Pro-B Natriuret Pep 3110 H 05/25/18 09:25 Creatine Kinase CK-MB (CK-2) 2.05 Troponin I 0.063 NT-Pro-B Natriuret Pep Impressions: Head CT 05/24/18 00:00 IMPRESSION: CHRONIC CHANGES OF ATROPHY AND MICROVASCULAR ISCHEMIA. NO ACUTE PROCESS. EVIDENCE OF ACUTE STROKE: NO. Cervical Spine CT 05/24/18 13:32 IMPRESSION: CHRONIC DEGENERATIVE CHANGES. NO ACUTE FINDINGS. Femur X-Ray 05/24/18 13:32 IMPRESSION: Fracture left femoral neck. Pelvis X-Ray 05/24/18 13:32 IMPRESSION: 1 Displaced fracture at the base of the left femoral neck. Assessment & Plan - Time Time Spent with patient: Less than 15 minutes Anticipated discharge: SNF Within: within 48 hours - Inpatient Certification Based on my medical assessment, after consideration of the patient's comorbidities, presenting symptoms, or acuity I expect that the services needed warrant INPATIENT care.: Yes Medical Necessity: Need For IV Fluids, Need for Pain Control - Plan Summary Plan Summary: 1. Left displaced femoral neck fracture possibly rehab in am 2. Urinary tract infection secondary to E. coli currently on Rocephin day 6 3. Scalp hematoma secondary to fall stable 4. History of CVA chronic 5. Dysphagia awaiting speech therapy evaluation in am 6. Hyperlipidemia 7. Hypertension we will add Vasotec IV until patient able to swallow 8. Advanced dementia 9. Leukocytosis- no evidence of acute infection likely inflammatory
[2018-05-30] MEDS ORDERED: NITROGLYCERIN 2% OINTMENT 1 GM PACKET ONE (19:40)
[2018-05-30] MEDS ORDERED: LORAZEPAM INJ 2 MG/1 ML VIAL ONE (19:41)
[2018-05-30] MEDS ORDERED: MORPHINE SULFATE 10 MG/ML INJ ONE (19:41)
[2018-05-30 19:46] LABS: ARTERIAL BLOOD BASE EXCESS -7.1 mmol/L; ARTERIAL BLOOD H2CO3 1.39 mmol/L (1.05-1.35); ARTERIAL BLOOD O2 SATURATION 76.2 % (94-98); ARTERIAL BLOOD PCO2 46.1 mmHg (35-45); ARTERIAL BLOOD PH 7.26 (7.35-7.45); ARTERIAL BLOOD PO2 46.9 mmHg (80-100); ARTERIAL BLOOD TOTAL CO2 21.4 mmol/L (21-25)
[2018-05-30 19:48] LABS: ARTERIAL BLOOD FIO2 100%
[2018-05-30 19:52] LABS: ABSOLUTE BASOPHILS # (AUTO) 0.2 10^3/uL (0.0-0.2); ABSOLUTE EOSINOPHILS # (AUTO) 0.1 10^3/uL (0.0-0.6); ABSOLUTE LYMPHOCYTES (AUTO) 2.7 10^3/uL (0.5-4.7); ABSOLUTE MONOCYTES (AUTO) 1.5 10^3/uL (0.1-1.4); ABSOLUTE NEUT (AUTO) 14.9 10^3/uL (1.7-8.2); EOSINOPHILS % (AUTO) 0.3 % (0-6); HEMATOCRIT 36.9 % (36.0-47.0); HEMOGLOBIN 12.5 g/dL (12.0-15.5); LYMPHOCYTES % (AUTO) 13.8 % (13-45); MEAN CORPUSCULAR HEMOGLOBIN 30.5 pg (27.0-33.4); MEAN CORPUSCULAR HGB CONC 33.7 g/dL (32.0-36.0); MEAN CORPUSCULAR VOLUME 91 fl (80-97); MONOCYTES % (AUTO) 7.6 % (3-13); PLATELET COUNT 466 10^3/uL (150-450); RED BLOOD COUNT 4.08 10^6/uL (3.72-5.28); RED CELL DISTRIBUTION WIDTH 13.5 % (11.5-14.0); SEGMENTED NEUTROPHILS % (AUTO) 77.3 % (42-78); TOTAL CELLS COUNTED % (AUTO) 100 %; WHITE BLOOD COUNT 19.3 10^3/uL (4.0-10.5)
[2018-05-30] MEDS ORDERED: NITROGLYCERIN 2% OINTMENT 1 GM PACKET TP ONE (20:00)
[2018-05-30] MEDS ORDERED: LORAZEPAM INJ 2 MG/1 ML VIAL IV ONE (20:00)
[2018-05-30] MEDS ORDERED: MORPHINE SULFATE 10 MG/ML INJ IV ONE (20:00)
[2018-05-30 20:04] LABS: ALANINE AMINOTRANSFERASE 15 U/L (9-52); ALKALINE PHOSPHATASE 84 U/L (38-126); ASPARTATE AMINO TRANSFERASE 32 U/L (14-36); BILIRUBIN,DIRECT 0.4 mg/dL (0.0-0.4); BILIRUBIN,TOTAL 1.6 mg/dL (0.2-1.3); BLOOD UREA NITROGEN 29 mg/dL (7-20); CALCIUM 10.5 mg/dL (8.4-10.2); GLUCOSE 148 mg/dL (75-110); POTASSIUM 4.4 mmol/L (3.6-5.0)
--- NOTE | 2018-05-30 20:04 | RADIOLOGY REPORT (SQ) ---
EXAM DESCRIPTION: CHEST SINGLE VIEW COMPLETED DATE/TIME: 05/30/2018 7:48 pm REASON FOR STUDY: low 02 sats COMPARISON: None. EXAM PARAMETERS: NUMBER OF VIEWS: One view. TECHNIQUE: Single frontal radiographic view of the chest acquired. RADIATION DOSE: NA LIMITATIONS: None. FINDINGS: LUNGS AND PLEURA: No opacities, masses or pneumothorax. No pleural effusion. MEDIASTINUM AND HILAR STRUCTURES: No masses. Contour normal. HEART AND VASCULAR STRUCTURES: Heart normal in size. Normal vasculature. BONES: No acute findings. HARDWARE: None in the chest. OTHER: No other significant finding. IMPRESSION: NO ACUTE RADIOGRAPHIC FINDING IN THE CHEST. TECHNICAL DOCUMENTATION: JOB ID: [id number] [employer]- All Rights Reserved Reading location - IP/workstation name: [email or web address]
[2018-05-30 20:09] LABS: CARBON DIOXIDE 17 mmol/L (22-30); CHLORIDE 101 mmol/L (98-107); SODIUM 140.2 mmol/L (137-145)
[2018-05-30 20:12] LABS: ANION GAP 22 (5-19)
[2018-05-30 20:19] LABS: CREATINE KINASE MB 5.76 ng/mL (<4.55)
[2018-05-30 20:24] LABS: TROPONIN I 0.175 ng/mL
[2018-05-30] MEDS: NORMAL SALINE 1000 ML 1,000 ML IV PRN (22:00)
--- NOTE | 2018-05-30 22:16 | EKG REPORT ---
SEVERITY:- ABNORMAL ECG - SINUS TACHYCARDIA VENTRICULAR PREMATURE COMPLEX NONSPECIFIC INTRAVENTRICULAR CONDUCTION DELAY BORDERLINE INFERIOR Q WAVES ANTERIOR INFARCT, OLD ST DEPRESSION, CONSIDER ISCHEMIA, INF LEADS : Confirmed by: Juancarlos Eldridge MD 30-May-2018 22:15:57
[2018-05-30] MEDS: CIPROFLOXACIN 400 MG/D5W RTU 400 MG/200 ML RTUPB IV SCH (22:49)
[2018-05-31] MEDS: NORMAL SALINE 1000 ML 1,000 ML IV PRN (01:30)
[2018-05-31] MEDS: ENALAPRILAT DIHYDRATE INJ/PF 1.25 MG/1 ML SDV IV SCH ×3 (01:37→13:39)
[2018-05-31] MEDS: LANSOPRAZOLE 30 MG TAB.RAP.DR PO SCH (05:16)
[2018-05-31] MEDS: CIPROFLOXACIN 400 MG/D5W RTU 400 MG/200 ML RTUPB IV SCH (09:44)
[2018-05-31] MEDS: HYDROCHLOROTHIAZIDE 12.5 MG TABLET PO SCH (09:49)
[2018-05-31] MEDS ORDERED: MORPHINE SULFATE 10 MG/ML INJ IV PRN (14:45)
--- NOTE | 2018-05-31 15:15 | PDOC PROGRESS REPORT ---
Subjective Progress Note for:: 05/31/18 Subjective:: Overnight events noted. Patient was found to be in respiratory distress. The is currently on BiPAP with 75% oxygen. She was started on IV antibiotics. So far chest x-ray has been negative although her white count went up to 19,000. Precise etiology of an infection is unknown currently. I was called and informed that family will like to change her to comfort care and given this patient's comorbidities and acute illness I believe this is a reasonable choice and so the patient has been changed to comfort care. Reason For Visit: FALL,LEFT DISPLACED FEMORAL NECK FRACTURE,DEMENTIA Physical Exam Vital Signs: Temp Pulse Resp BP Pulse Ox 98.3 F 82 13 133/63 H 100 05/31/18 12:00 05/31/18 12:00 05/31/18 12:39 05/31/18 12:00 05/31/18 12:39 Pulse Oximeter Continuous Start: 05/26/18 15: 36 Freq: RTQ4 Status: Complete Document 05/29/18 11:36 TPO (Rec: 05/29/18 11:36 TPO [email or web address]) Pulse Oximetry Assessment Equipment Usage Equipment Discontinued Continuous SpO2 Machine # 10 Intake & Output 05/30/18 05/31/18 06/01/18 06:59 06:59 06:59 Intake Total 0 2200 200 Output Total 600 300 Balance -600 1900 200 Weight 41.4 kg 44.1 kg General appearance: PRESENT: no acute distress, thin, other - Elderly and frail Head exam: PRESENT: atraumatic, normocephalic Eye exam: ABSENT: scleral icterus Ear exam: PRESENT: normal external ear exam Mouth exam: PRESENT: dry mucosa Neck exam: ABSENT: carotid bruit, JVD, lymphadenopathy, thyromegaly Respiratory exam: PRESENT: decreased breath sounds, rhonchi. ABSENT: rales, wheezes Cardiovascular exam: PRESENT: RRR. ABSENT: diastolic murmur, rubs, systolic murmur Pulses: PRESENT: normal dorsalis pedis pul Vascular exam: PRESENT: normal capillary refill GI/Abdominal exam: PRESENT: normal bowel sounds, soft. ABSENT: distended, guarding, mass, organolmegaly, rebound, tenderness Rectal exam: PRESENT: deferred Extremities exam: PRESENT: full ROM. ABSENT: calf tenderness, clubbing, pedal edema Neurological exam: PRESENT: altered, other - unable to assess Psychiatric exam: ABSENT: homicidal ideation, suicidal ideation Skin exam: PRESENT: dry. ABSENT: cyanosis, rash Results Laboratory Results: 05/30/18 19:39 05/30/18 19:39 05/30/18 05/30/18 05/30/18 19:30 19:39 19:39 WBC 19.3 H RBC 4.08 Hgb 12.5 Hct 36.9 MCV 91 MCH 30.5 MCHC 33.7 RDW 13.5 Plt Count 466 H Seg Neutrophils % 77.3 Lymphocytes % 13.8 Monocytes % 7.6 Eosinophils % 0.3 Basophils % 1.0 Absolute Neutrophils 14.9 H Absolute Lymphocytes 2.7 Absolute Monocytes 1.5 H Absolute Eosinophils 0.1 Absolute Basophils 0.2 Carbonic Acid 1.39 H HCO3/H2CO3 Ratio 14:1 ABG pH 7.26 L ABG pCO2 46.1 H ABG pO2 46.9 L ABG HCO3 20.0 ABG O2 Saturation 76.2 L ABG Base Excess -7.1 FiO2 100% Sodium 140.2 Potassium 4.4 Chloride 101 Carbon Dioxide 17 L Anion Gap 22 H BUN 29 H Creatinine 0.61 Est GFR ( Amer) > 60 Est GFR (Non-Af Amer) > 60 Glucose 148 H Calcium 10.5 H Total Bilirubin 1.6 H AST 32 ALT 15 Alkaline Phosphatase 84 Total Protein 8.0 Albumin 4.0 05/24/18 05/24/18 05/25/18 21:30 21:30 03:46 Creatine Kinase 97 100 CK-MB (CK-2) 3.23 Troponin I 0.064 NT-Pro-B Natriuret Pep 05/25/18 05/25/18 05/25/18 03:46 03:46 09:25 Creatine Kinase 86 CK-MB (CK-2) 2.44 Troponin I 0.072 NT-Pro-B Natriuret Pep 3110 H 05/25/18 05/30/18 05/30/18 09:25 19:39 19:39 Creatine Kinase 252 H CK-MB (CK-2) 2.05 5.76 H Troponin I 0.063 0.175 NT-Pro-B Natriuret Pep Impressions: Head CT 05/24/18 00:00 IMPRESSION: CHRONIC CHANGES OF ATROPHY AND MICROVASCULAR ISCHEMIA. NO ACUTE PROCESS. EVIDENCE OF ACUTE STROKE: NO. Cervical Spine CT 05/24/18 13:32 IMPRESSION: CHRONIC DEGENERATIVE CHANGES. NO ACUTE FINDINGS. Femur X-Ray 05/24/18 13:32 IMPRESSION: Fracture left femoral neck. Pelvis X-Ray 05/24/18 13:32 IMPRESSION: 1 Displaced fracture at the base of the left femoral neck. Chest X-Ray 05/30/18 00:00 IMPRESSION: NO ACUTE RADIOGRAPHIC FINDING IN THE CHEST. Assessment & Plan - Time Time Spent with patient: 15-24 minutes Medications reviewed and adjusted accordingly: Yes Anticipated discharge: Hospice Within: within 48 hours - Inpatient Certification Based on my medical assessment, after consideration of the patient's comorbidities, presenting symptoms, or acuity I expect that the services needed warrant INPATIENT care.: Yes Medical Necessity: Risk of Complication if Not Cared For in Hospital
[2018-05-31] MEDS: LORAZEPAM INJ 2 MG/1 ML VIAL IV PRN (22:06)
[2018-06-01] MEDS: LORAZEPAM INJ 2 MG/1 ML VIAL IV PRN ×4 (02:16→13:06)
[2018-06-01] MEDS ORDERED: MORPHINE SULFATE 10 MG/ML INJ ONE (03:42)
[2018-06-01] MEDS: MORPHINE SULFATE 10 MG/ML INJ IV PRN ×2 (03:48→11:00)
[2018-06-01] MEDS ORDERED: HYDROCHLOROTHIAZIDE 12.5 MG TABLET PO SCH (10:00)
--- NOTE | 2018-06-01 17:21 | PDOC PROGRESS REPORT ---
Subjective Progress Note for:: 06/01/18 Subjective:: Patient is unresponsive however she is comfortable receiving comfort care Reason For Visit: COMFORT MEASURES LEFT HIP FRACTURE Physical Exam Vital Signs: Temp Pulse Resp BP Pulse Ox 98.2 F 157 H 23 H 175/80 H 97 05/31/18 16:00 06/01/18 07:00 05/31/18 16:00 05/31/18 16:00 06/01/18 16:03 Pulse Oximeter Continuous Start: 05/26/18 15: 36 Freq: RTQ4 Status: Complete Document 05/29/18 11:36 TPO (Rec: 05/29/18 11:36 TPO [email or web address]) Pulse Oximetry Assessment Equipment Usage Equipment Discontinued Continuous SpO2 Machine # 10 Intake & Output 05/31/18 06/01/18 06/02/18 06:59 06:59 06:59 Intake Total 2200 200 Output Total 300 215 Balance 1900 -15 Weight 44.1 kg Elderly female unresponsive in no distress Lungs reveal adequate air entry Perivascular exam reveals S1-S2 tachycardic Abdomen is soft Scalp reveals left hematoma Results Laboratory Results: 05/30/18 19:39 05/30/18 19:39 05/24/18 05/24/18 05/25/18 21:30 21:30 03:46 Creatine Kinase 97 100 CK-MB (CK-2) 3.23 Troponin I 0.064 NT-Pro-B Natriuret Pep 05/25/18 05/25/18 05/25/18 03:46 03:46 09:25 Creatine Kinase 86 CK-MB (CK-2) 2.44 Troponin I 0.072 NT-Pro-B Natriuret Pep 3110 H 05/25/18 05/30/18 05/30/18 09:25 19:39 19:39 Creatine Kinase 252 H CK-MB (CK-2) 2.05 5.76 H Troponin I 0.063 0.175 NT-Pro-B Natriuret Pep Impressions: Head CT 05/24/18 00:00 IMPRESSION: CHRONIC CHANGES OF ATROPHY AND MICROVASCULAR ISCHEMIA. NO ACUTE PROCESS. EVIDENCE OF ACUTE STROKE: NO. Cervical Spine CT 05/24/18 13:32 IMPRESSION: CHRONIC DEGENERATIVE CHANGES. NO ACUTE FINDINGS. Femur X-Ray 05/24/18 13:32 IMPRESSION: Fracture left femoral neck. Pelvis X-Ray 05/24/18 13:32 IMPRESSION: 1 Displaced fracture at the base of the left femoral neck. Chest X-Ray 05/30/18 00:00 IMPRESSION: NO ACUTE RADIOGRAPHIC FINDING IN THE CHEST. Assessment & Plan - Diagnosis (1) Acute respiratory failure Qualifiers: Respiratory failure complication: hypercapnia Qualified Code(s): J96.02 - Acute respiratory failure with hypercapnia Is this a current diagnosis for this admission?: Yes (2) Need for comfort care Is this a current diagnosis for this admission?: Yes Plan: We will continue comfort care (3) Hip fracture Qualifiers: Encounter type: initial encounter Fracture type: closed Laterality: left Qualified Code(s): S72.002A - Fracture of unspecified part of neck of left femur, initial encounter for closed fracture Is this a current diagnosis for this admission?: Yes (4) Urinary tract infection Qualifiers: Urinary tract infection type: site unspecified Hematuria presence: without hematuria Qualified Code(s): N39.0 - Urinary tract infection, site not specified Is this a current diagnosis for this admission?: Yes - Time Time Spent with patient: Less than 15 minutes Medications reviewed and adjusted accordingly: Yes Anticipated discharge: Hospice - Inpatient Certification Based on my medical assessment, after consideration of the patient's comorbidities, presenting symptoms, or acuity I expect that the services needed warrant INPATIENT care.: Yes Medical Necessity: Need for Pain Control
[2018-06-02] MEDS: MORPHINE SULFATE 10 MG/ML INJ IV PRN ×2 (14:45→18:02)
--- NOTE | 2018-06-02 17:54 | PDOC PROGRESS REPORT ---
Subjective Progress Note for:: 06/02/18 Subjective:: Patient is unresponsive however she is comfortable receiving comfort care We will continue with morphine and Ativan as needed Reason For Visit: COMFORT MEASURES LEFT HIP FRACTURE Physical Exam Vital Signs: Temp Pulse Resp BP Pulse Ox 98.2 F 157 H 23 H 175/80 H 100 05/31/18 16:00 06/01/18 07:00 05/31/18 16:00 05/31/18 16:00 06/02/18 00:55 Pulse Oximeter Continuous Start: 05/26/18 15: 36 Freq: RTQ4 Status: Complete Document 05/29/18 11:36 TPO (Rec: 05/29/18 11:36 TPO [email or web address]) Pulse Oximetry Assessment Equipment Usage Equipment Discontinued Continuous SpO2 Machine # 10 Intake & Output 06/01/18 06/02/18 06/03/18 06:59 06:59 06:59 Intake Total 200 Output Total 215 150 Balance -15 -150 Weight 44.1 kg General appearance: PRESENT: no acute distress Head exam: PRESENT: other - Left scalp hematoma Eye exam: PRESENT: EOMI. ABSENT: scleral icterus Respiratory exam: PRESENT: decreased breath sounds. ABSENT: rales, rhonchi, wheezes Cardiovascular exam: PRESENT: RRR. ABSENT: diastolic murmur, rubs, systolic murmur Rectal exam: PRESENT: deferred Extremities exam: PRESENT: full ROM. ABSENT: calf tenderness, clubbing, pedal edema Neurological exam: PRESENT: other - Unresponsive. ABSENT: motor sensory deficit Psychiatric exam: ABSENT: homicidal ideation, suicidal ideation Results Laboratory Results: 05/30/18 19:39 05/30/18 19:39 05/24/18 05/24/18 05/25/18 21:30 21:30 03:46 Creatine Kinase 97 100 CK-MB (CK-2) 3.23 Troponin I 0.064 NT-Pro-B Natriuret Pep 05/25/18 05/25/18 05/25/18 03:46 03:46 09:25 Creatine Kinase 86 CK-MB (CK-2) 2.44 Troponin I 0.072 NT-Pro-B Natriuret Pep 3110 H 05/25/18 05/30/18 05/30/18 09:25 19:39 19:39 Creatine Kinase 252 H CK-MB (CK-2) 2.05 5.76 H Troponin I 0.063 0.175 NT-Pro-B Natriuret Pep Impressions: Head CT 05/24/18 00:00 IMPRESSION: CHRONIC CHANGES OF ATROPHY AND MICROVASCULAR ISCHEMIA. NO ACUTE PROCESS. EVIDENCE OF ACUTE STROKE: NO. Cervical Spine CT 05/24/18 13:32 IMPRESSION: CHRONIC DEGENERATIVE CHANGES. NO ACUTE FINDINGS. Femur X-Ray 05/24/18 13:32 IMPRESSION: Fracture left femoral neck. Pelvis X-Ray 05/24/18 13:32 IMPRESSION: 1 Displaced fracture at the base of the left femoral neck. Chest X-Ray 05/30/18 00:00 IMPRESSION: NO ACUTE RADIOGRAPHIC FINDING IN THE CHEST. Assessment & Plan - Diagnosis (1) Acute respiratory failure Qualifiers: Respiratory failure complication: hypercapnia Qualified Code(s): J96.02 - Acute respiratory failure with hypercapnia Is this a current diagnosis for this admission?: Yes (2) Need for comfort care Is this a current diagnosis for this admission?: Yes (3) Hip fracture Qualifiers: Encounter type: initial encounter Fracture type: closed Laterality: left Qualified Code(s): S72.002A - Fracture of unspecified part of neck of left femur, initial encounter for closed fracture Is this a current diagnosis for this admission?: Yes (4) Urinary tract infection Qualifiers: Urinary tract infection type: site unspecified Hematuria presence: without hematuria Qualified Code(s): N39.0 - Urinary tract infection, site not specified Is this a current diagnosis for this admission?: Yes - Time Time Spent with patient: Less than 15 minutes Anticipated discharge: Hospice Within: within 48 hours - Inpatient Certification Based on my medical assessment, after consideration of the patient's comorbidities, presenting symptoms, or acuity I expect that the services needed warrant INPATIENT care.: Yes Medical Necessity: Need for Pain Control
--- NOTE | 2018-06-03 18:16 | PDOC PROGRESS REPORT ---
Subjective Progress Note for:: 06/03/18 Subjective:: Patient is unresponsive however she is comfortable receiving comfort care We will continue with morphine and Ativan as needed Will consider transfer in am if situation unchanged Reason For Visit: COMFORT MEASURES LEFT HIP FRACTURE Physical Exam Vital Signs: Temp Pulse Resp BP Pulse Ox 98.2 F 157 H 23 H 175/80 H 96 05/31/18 16:00 06/01/18 07:00 05/31/18 16:00 05/31/18 16:00 06/02/18 16:11 Pulse Oximeter Continuous Start: 05/26/18 15: 36 Freq: RTQ4 Status: Complete Document 05/29/18 11:36 TPO (Rec: 05/29/18 11:36 TPO [email or web address]) Pulse Oximetry Assessment Equipment Usage Equipment Discontinued Continuous SpO2 Machine # 10 Intake & Output 06/02/18 06/03/18 06/04/18 06:59 06:59 06:59 Output Total 150 200 Balance -150 -200 Weight 44.1 kg General appearance: PRESENT: no acute distress, thin, other - unresponsive Head exam: PRESENT: other - L scalp hematoma Respiratory exam: PRESENT: crackles, rhonchi, unlabored GI/Abdominal exam: PRESENT: normal bowel sounds, soft. ABSENT: distended, guarding, mass, organolmegaly, rebound, tenderness Neurological exam: PRESENT: other - unresponsive Results Laboratory Results: 05/30/18 19:39 05/30/18 19:39 05/24/18 05/24/18 05/25/18 21:30 21:30 03:46 Creatine Kinase 97 100 CK-MB (CK-2) 3.23 Troponin I 0.064 NT-Pro-B Natriuret Pep 05/25/18 05/25/18 05/25/18 03:46 03:46 09:25 Creatine Kinase 86 CK-MB (CK-2) 2.44 Troponin I 0.072 NT-Pro-B Natriuret Pep 3110 H 05/25/18 05/30/18 05/30/18 09:25 19:39 19:39 Creatine Kinase 252 H CK-MB (CK-2) 2.05 5.76 H Troponin I 0.063 0.175 NT-Pro-B Natriuret Pep Impressions: Head CT 05/24/18 00:00 IMPRESSION: CHRONIC CHANGES OF ATROPHY AND MICROVASCULAR ISCHEMIA. NO ACUTE PROCESS. EVIDENCE OF ACUTE STROKE: NO. Cervical Spine CT 05/24/18 13:32 IMPRESSION: CHRONIC DEGENERATIVE CHANGES. NO ACUTE FINDINGS. Femur X-Ray 05/24/18 13:32 IMPRESSION: Fracture left femoral neck. Pelvis X-Ray 05/24/18 13:32 IMPRESSION: 1 Displaced fracture at the base of the left femoral neck. Chest X-Ray 05/30/18 00:00 IMPRESSION: NO ACUTE RADIOGRAPHIC FINDING IN THE CHEST. Assessment & Plan - Diagnosis (1) Acute respiratory failure Qualifiers: Respiratory failure complication: hypercapnia Qualified Code(s): J96.02 - Acute respiratory failure with hypercapnia Is this a current diagnosis for this admission?: Yes (2) Need for comfort care Is this a current diagnosis for this admission?: Yes (3) Hip fracture Qualifiers: Encounter type: initial encounter Fracture type: closed Laterality: left Qualified Code(s): S72.002A - Fracture of unspecified part of neck of left femur, initial encounter for closed fracture Is this a current diagnosis for this admission?: Yes (4) Urinary tract infection Qualifiers: Urinary tract infection type: site unspecified Hematuria presence: without hematuria Qualified Code(s): N39.0 - Urinary tract infection, site not specified Is this a current diagnosis for this admission?: Yes - Time Time Spent with patient: Less than 15 minutes Anticipated discharge: Hospice Within: within 24 hours - Inpatient Certification Based on my medical assessment, after consideration of the patient's comorbidities, presenting symptoms, or acuity I expect that the services needed warrant INPATIENT care.: Yes Medical Necessity: Need for Pain Control, Other - end of life
[2018-06-04] MEDS: MORPHINE SULFATE 10 MG/ML INJ IV PRN ×5 (04:54→17:59)
[2018-06-04] MEDS: LORAZEPAM INJ 2 MG/1 ML VIAL IV PRN ×3 (12:17→18:32)
--- NOTE | 2018-06-04 19:43 | PDOC PROGRESS REPORT ---
Subjective Progress Note for:: 06/04/18 Subjective:: Patient is unresponsive however she is comfortable receiving comfort care We will continue with morphine and Ativan as needed She appears to be gasping today and so her Morphine was increased Reason For Visit: COMFORT MEASURES LEFT HIP FRACTURE Physical Exam Vital Signs: Temp Pulse Resp BP Pulse Ox 98.2 F 157 H 23 H 175/80 H 96 05/31/18 16:00 06/01/18 07:00 05/31/18 16:00 05/31/18 16:00 06/04/18 15:58 Pulse Oximeter Continuous Start: 05/26/18 15: 36 Freq: RTQ4 Status: Complete Document 05/29/18 11:36 TPO (Rec: 05/29/18 11:36 TPO [id number]) Pulse Oximetry Assessment Equipment Usage Equipment Discontinued Continuous SpO2 Machine # 10 Intake & Output 06/03/18 06/04/18 06/05/18 06:59 06:59 06:59 Intake Total 0 Output Total 200 225 Balance -200 -225 Weight 44.1 kg General appearance: PRESENT: mild distress, thin Head exam: PRESENT: other - L scalp hematoma Respiratory exam: PRESENT: crackles Cardiovascular exam: PRESENT: RRR. ABSENT: diastolic murmur, rubs, systolic murmur Rectal exam: PRESENT: deferred Neurological exam: PRESENT: other - unresponsive. ABSENT: motor sensory deficit Skin exam: PRESENT: rash Results Laboratory Results: 05/30/18 19:39 05/30/18 19:39 05/24/18 05/24/18 05/25/18 21:30 21:30 03:46 Creatine Kinase 97 100 CK-MB (CK-2) 3.23 Troponin I 0.064 NT-Pro-B Natriuret Pep 05/25/18 05/25/18 05/25/18 03:46 03:46 09:25 Creatine Kinase 86 CK-MB (CK-2) 2.44 Troponin I 0.072 NT-Pro-B Natriuret Pep 3110 H 05/25/18 05/30/18 05/30/18 09:25 19:39 19:39 Creatine Kinase 252 H CK-MB (CK-2) 2.05 5.76 H Troponin I 0.063 0.175 NT-Pro-B Natriuret Pep Impressions: Head CT 05/24/18 00:00 IMPRESSION: CHRONIC CHANGES OF ATROPHY AND MICROVASCULAR ISCHEMIA. NO ACUTE PROCESS. EVIDENCE OF ACUTE STROKE: NO. Cervical Spine CT 05/24/18 13:32 IMPRESSION: CHRONIC DEGENERATIVE CHANGES. NO ACUTE FINDINGS. Femur X-Ray 05/24/18 13:32 IMPRESSION: Fracture left femoral neck. Pelvis X-Ray 05/24/18 13:32 IMPRESSION: 1 Displaced fracture at the base of the left femoral neck. Chest X-Ray 05/30/18 00:00 IMPRESSION: NO ACUTE RADIOGRAPHIC FINDING IN THE CHEST. Assessment & Plan - Diagnosis (1) Acute respiratory failure Qualifiers: Respiratory failure complication: hypercapnia Qualified Code(s): J96.02 - Acute respiratory failure with hypercapnia Is this a current diagnosis for this admission?: Yes (2) Need for comfort care Is this a current diagnosis for this admission?: Yes (3) Hip fracture Qualifiers: Encounter type: initial encounter Fracture type: closed Laterality: left Qualified Code(s): S72.002A - Fracture of unspecified part of neck of left femur, initial encounter for closed fracture Is this a current diagnosis for this admission?: Yes (4) Urinary tract infection Qualifiers: Urinary tract infection type: site unspecified Hematuria presence: without hematuria Qualified Code(s): N39.0 - Urinary tract infection, site not specified Is this a current diagnosis for this admission?: Yes - Time Time Spent with patient: Less than 15 minutes Medications reviewed and adjusted accordingly: Yes Anticipated discharge: Hospice Within: within 48 hours - Inpatient Certification Based on my medical assessment, after consideration of the patient's comorbidities, presenting symptoms, or acuity I expect that the services needed warrant INPATIENT care.: Yes Medical Necessity: Other - Awaiting transfer to Hospice
[2018-06-05] MEDS: MORPHINE SULFATE 10 MG/ML INJ IV PRN ×4 (00:07→11:25)
[2018-06-05 08:30] VITALS: BP 112/60
[2018-06-05] MEDS: LORAZEPAM INJ 2 MG/1 ML VIAL IV PRN ×2 (09:15→11:23)
--- NOTE | 2018-06-05 10:26 | PROGRESS NOTE E ---
Progress Note NAME: LUIS MOORE : 1935 AGE: 82Y DATE: 06/05/2018 ROOM: 537 SUBJECTIVE: The patient is lying in bed. The patient is unable to speak. She is resting quietly. The patient apparently was moaning in distress earlier, but responded nicely to some morphine. The patient remains on comfort measures and is unable to voice any specific concerns at this time. REVIEW OF SYSTEMS: Unobtainable. MEDICATIONS: Reviewed. OBJECTIVE: GENERAL: The patient is an 82-year-old female who is currently resting quietly. Does not appear to be in any distress. VITAL SIGNS: Temperature 99.1, pulse 77, blood pressure 112/60, oxygen saturation 96% on 3 liters nasal cannula. SKIN: Extremely pale. She is not diaphoretic. HEENT: The patient does have significant bruising of her face. No overt evidence of JVP. CHEST: Symmetrical, unlabored. ABDOMEN: Nondistended. EXTREMITIES: Very cool to the touch. PSYCHIATRIC: Unable to fully assess. DIAGNOSTICS: Lab values are as follows. Hematology obtained on 05/30/2018: WBC 9.3, hemoglobin 12.5, hematocrit 36.9, platelet count 466,000. ASSESSMENT AND PLAN: 1. LEFT FEMUR HIP FRACTURE. The patient is not an operative candidate. It has been elected to proceed with comfort care measures. 2. URINARY TRACT INFECTION. The patient completed treatment. 3. ACUTE RESPIRATORY FAILURE WITH HYPOXIA AND HYPERCAPNIA. Will supplement O2 for her comfort. 4. COMFORT CARE MEASURES. Will continue Ativan, morphine. 5. DEMENTIA. The patient did not have a high functional baseline. DISPOSITION: The patient is a DO NOT RESUSCITATE/DO NOT INTUBATE with comfort care measures only. Will evaluate as needed. Time spent on this followup, including assessment, plan, physical examination, attempt at patient education, and review of records is 25 minutes. DICTATING PHYSICIAN: DARLENE SHANKS NP [id number] PHY#: [id number] ID: [id number] JOB#: [id number] ACCT: [id number] cc: >
--- NOTE | 2018-06-06 09:16 | PROGRESS NOTE E ---
Progress Note NAME: LUIS MOORE : 1935 AGE: 82Y DATE: 06/06/2018 ROOM: 537 SUBJECTIVE: The patient is lying in bed. The patient is unable to provide any history, she is completely obtunded. The patient has been medicated as needed with morphine and Ativan for her comfort and the patient is unable to articulate any concerns at this time. REVIEW OF SYSTEMS: Unobtainable. MEDICATIONS: Medications have been tailored for comfort. OBJECTIVE: GENERAL: The patient is a frail-appearing 82-year-old female that is minimally responsive. She appears comfortable. Does not appear to be in any distress. VITAL SIGNS: Vital signs have been deferred for patient comfort. Respirations are 8, shallow. She does have O2 at [address] SKIN: Warm, dry, she is not diaphoretic. HEENT: Mucous membranes appear dry. CVS: Heart is in sinus rhythm. CHEST: Symmetrical, unlabored, shallow. ABDOMEN: Appears nondistended. EXTREMITIES: No edema. PSYCHIATRIC: Unable to assess. DIAGNOSTICS: Lab values are as follows. Hematology obtained on 05/30/2018: WBC 19.3, hemoglobin 12.5, hematocrit 36.9, platelet count 466,000. Chemistry panel 05/30/2018: Sodium 140, potassium 4.4, chloride 101, carbon dioxide 17, BUN 29, creatinine 0.61, glucose 148, calcium 10.5, bilirubin 1.6, AST 32, ALT 15, chas-phos 84, total protein 8.0, albumin 4.0. IMPRESSION AND PLAN: 1. LEFT HIP FRACTURE. THE PATIENT IS NOT AN OPERATIVE CANDIDATE. IT HAS BEEN ELECTED TO PROCEED WITH COMFORT CARE MEASURES. 2. URINARY TRACT INFECTION. THE PATIENT COMPLETED TREATMENT. 3. ACUTE RESPIRATORY FAILURE WITH HYPOXIA AND HYPERCAPNIA. O2 WAS SUPPLEMENTED FOR COMFORT. 4. COMFORT CARE MEASURES INCLUDE ATIVAN, MORPHINE. 5. DEMENTIA. THE PATIENT DID NOT HAVE A HIGH FUNCTIONAL BASELINE. DISPOSITION: The patient is a DO NOT RESUSCITATE/DO NOT INTUBATE with comfort care measures only. The patient's appears relatively immanent. Time spent on this followup, including assessment, plan, physical examination, and attempt at patient education is 10 minutes. DICTATING PHYSICIAN: DARLENE SHANKS NP [id number] CLARICE#: [id number] ID: [id number] JOB#: [id number] ACCT: [id number] cc: >
--- NOTE | 2018-06-07 15:26 | Death Summary ---
Summary Date : 06/06/18 Time of :: 20:00 Autopsy: No Resuscitation Status: Comfort Measures Only Primary Care Provider: Dr. Nawaf Herrmann Consulting Provider: Dr. Rockwell - Final Diagnosis (1) Dementia Is this a current diagnosis for this admission?: Yes (2) Left displaced femoral neck fracture Is this a current diagnosis for this admission?: Yes (4) Scalp hematoma Is this a current diagnosis for this admission?: Yes (5) Urinary tract infection Is this a current diagnosis for this admission?: Yes (6) Do not resuscitate Is this a current diagnosis for this admission?: Yes (7) Need for comfort care Is this a current diagnosis for this admission?: Yes Hospital Course:: LUIS MOORE is a 82 year old female who presents to emergency room after sustaining unwitnessed fall apparently onto her left side. Patient was brought by EMS from the detention. Patient is confused at baseline and thus limited history of present illness. Patient is a resident of [facility] and is a wanderer and was found on the floor bleeding from the left side of her head with minimal blood loss. Patient has a history of Plavix and last known dose administration time is unknown. However per report facility denied any blood thinners. Per report patient ambulated to the stretcher she denied any pain was tender to palpation on the left side of her head. Of note patient has allergies to sulfa. And is a DO NOT RESUSCITATE. Patient has a history of recent acute ischemic stroke. Patient also has a history of hypertension anxiety generalized weakness and dementia. Patient according to med list from [facility] patient is on Lipitor 40 vitamin D3 Lopressor, Namenda, aspirin, Roxanol, Ativan, inhaler flow air. Of note patient was noted to have difficulty swallowing when she was discharged to the facility. In the node accompanied in patient's chart it is mentioned that because patient was found not safe for nutrition by mouth her medications by mouth alternative treatments and PEG tube were discussed with the son. Son who is from [place] is visiting and is gone the next morning indicates that his mom had not wanted any heroic measures or life support. And CODE STATUS was changed from a full code to DO NOT RESUSCITATE. Patient was seen by the orthopedic in the emergency room. According to Orthopedics, the 82-year-old patient with dementia with recent stroke is a high risk candidate for left hip hemiarthroplasty. The son discussed with anesthesia and with Ortho, patient's son and caregiver discussing with the family and they elected to forego surgery and proceed with comfort measures. The patient's pain was controlled with Morphine and the patient .
== END 2018-06-06 20:00 | DRG 535 ==
LOC: ER 13:12 → EH 17:43 → 5 05-25 00:40
PROVIDERS: ADMIT Internal Medicine; ATTEND Internal Medicine
PROC: 5A09457 Assistance with Respiratory Ventilation, 24-96 Consecutive Hours, Continuous Positive Airway Pressure (ICD-10-PCS; principal; 2018-05-30)
DX: S72.002A Fracture of unspecified part of neck of left femur, initial encounter for closed fracture (principal); J96.02 Acute respiratory failure with hypercapnia; J96.01 Acute respiratory failure with hypoxia; N39.0 Urinary tract infection, site not specified; E87.1 Hypo-osmolality and hyponatremia; Z51.5 Encounter for palliative care; Z66 Do not resuscitate; F03.90 Unspecified dementia, unspecified severity, without behavioral disturbance, psychotic disturbance, mood disturbance, and anxiety; I10 Essential (primary) hypertension; S00.03XA Contusion of scalp, initial encounter; W19.XXXA Unspecified fall, initial encounter; Y92.122 Bedroom in nursing home as the place of occurrence of the external cause; R73.9 Hyperglycemia, unspecified; E78.00 Pure hypercholesterolemia, unspecified; M19.90 Unspecified osteoarthritis, unspecified site; B96.20 Unspecified Escherichia coli [E. coli] as the cause of diseases classified elsewhere; D72.829 Elevated white blood cell count, unspecified; I69.391 Dysphagia following cerebral infarction; Z90.710 Acquired absence of both cervix and uterus; Z79.899 Other long term (current) drug therapy; Z88.2 Allergy status to sulfonamides
CPT/HCPCS: 36415; 36600; 51702; 70450; 71045; 72125; 72170; 80048; 80053; 81001; 82550; 82553; 82803; 82962; 83735; 83880; 84100; 84439; 84443; 84484; 85025; 85610; 86850; 86900; 86901; 86920; 87086; 87088; 87186; 93005; 93010; 94660; 94762; 96374; 96375; 99285; G8996-GN; G8997-GN; G8998-GN; J0696; J0744; J1885; J2060; J2270; J2405; J3490; J7030; J7120; S0164